=== PATIENT | female | born 1940 | race Caucasian/White ===

== ENCOUNTER 2022-10-01 23:07 | Inpatient (IN) ==
--- NOTE | 2022-10-01 23:36 | Emergency Department Note ---
History of Present Illness General Chief complaint: Shortness of Breath/Dyspnea Stated complaint: SOB X2 hrs, Lethargic, Fever Time Seen by Provider: 10/01/22 23:15 History of Present Illness 81-year-old female presents emergency department via EMS reportedly had low pulse ox and a temperature at home. Patient of note is a DO NOT RESUSCITATE and she has a history of metastatic brain cancer and COPD. Patient was lethargic this evening had a fever and had shortness of breath. Patient's family states that they tried to have her ambulate to bed but she was extremely weak and they called EMS. Patient was placed on a BiPAP oximetry of 77%. Patient states that she is improved. There are no other complaints at this time Home Medications Medication Instructions Recorded Confirmed Type amitriptyline 10 mg tablet 10 mg PO HS 09/15/22 10/02/22 History duloxetine 20 mg capsule,delayed 20 mg PO DAILY 09/15/22 10/02/22 History release fluticasone propionate 50 2 spray intranasal DAILY 09/15/22 10/02/22 History mcg/actuation nasal spray,suspension gabapentin 400 mg capsule 400 mg PO BID 09/15/22 10/02/22 History hydromorphone 2 mg tablet 1 mg PO Q4H PRN Pain 09/15/22 10/02/22 History insulin aspart U-100 100 unit/mL 1 sliding scale dose subcut ACHS 09/15/22 10/02/22 History subcutaneous solution (Novolog U-100 Insulin aspart) insulin glargine 100 unit/mL (3 10 unit subcut QPM 09/15/22 10/02/22 History mL) subcutaneous pen (Lantus Solostar U-100 Insulin) lisinopril 2.5 mg tablet 2.5 mg PO DAILY 09/15/22 10/02/22 History multivitamin 1 tab PO DAILY 09/15/22 10/02/22 History olanzapine 5 mg tablet 5 mg PO QPM 09/15/22 10/02/22 History omeprazole 40 mg capsule,delayed 40 mg PO DAILY 09/15/22 10/02/22 History release polyethylene glycol 3350 17 17 g PO BID 09/15/22 10/02/22 History gram/dose oral powder (Miralax) roflumilast 500 mcg tablet 500 mcg PO DAILY 09/15/22 10/02/22 History sennosides 8.6 mg-docusate sodium 2 tab-cap PO BID 09/15/22 10/02/22 History 50 mg tablet (Senna with Docusate Sodium) simvastatin 20 mg tablet 20 mg PO DAILY 09/15/22 10/02/22 History dexamethasone 4 mg tablet 4 mg PO DAILY 5 days #5 tabs 09/28/22 10/02/22 Rx acetaminophen 500 mg tablet 500 mg PO Q6H PRN Pain 10/02/22 10/02/22 History (Tylenol Extra Strength) albuterol sulfate 90 mcg/actuation 2 puff inhalation 6XD 10/02/22 10/02/22 History aerosol inhaler budesonide-formoterol HFA 160 2 inh inhalation BID 10/02/22 10/02/22 History mcg-4.5 mcg/actuation aerosol inhaler (Symbicort) desloratadine 5 mg tablet 5 mg PO DAILY PRN Congestion 10/02/22 10/02/22 History empagliflozin 25 mg tablet 25 mg PO QAM 10/02/22 10/02/22 History (Jardiance) glimepiride 2 mg tablet 2 mg PO BID 10/02/22 10/02/22 History ipratropium 0.5 mg-albuterol 3 mg 3 ml inhalation Q6H PRN Wheezing 10/02/22 10/02/22 History (2.5 mg base)/3 mL nebulization soln lorazepam 0.5 mg tablet 0.5 mg PO Q6H PRN Anxiety 10/02/22 10/02/22 History venlafaxine 75 mg capsule,extended 75 mg PO DAILY 10/02/22 10/02/22 History release 24 hr Allergies Allergy/AdvReac Type Severity Reaction Status Date / Time No Known Allergies Allergy Verified 10/02/22 00:09 Past Med/Surg History Medical History Anxiety COPD (chronic obstructive pulmonary disease) Diabetes mellitus Hypercholesteremia Hypertension Metastatic cancer On home O2 @ HS Surgical History H/O removal of cyst Right breast H/O: hysterectomy S/P cholecystectomy S/P lobectomy of lung right lung Family History Father Cancer Brain Brother Cancer Sister Cancer Pancreatic Son Cancer Liver Social History Smoking Status: Unknown if ever smoked Age Started Using Tobacco: 15; packs per day: 1.5; Second Hand Exposure: No; Do You Dip or Chew Tobacco: No; Hx Alcohol Use: No Hx Substance Use: No Preferred Language: Martiniquais Communication Ability: Effective Visual Impairment: No Limitations Hearing Ability: Hard of Hearing Tank Officer Required: No Beliefs That Will Affect Care: None marital status: Current Living Situation: Alone current occupational status: retired 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 Feels Safe at Home: Yes Diet: regular caffeine: Yes (coffee daily) Assistive Devices: Cane, Denture - Upper, Denture - Lower, Glasses, Nebulizer, Oxygen - at Night, Raised Toilet Seat and Walker Review of Systems A total of 10 systems reviewed and were otherwise negative Constitutional: + fever Respiratory: + chest congestion and + dyspnea Cardiovascular: no chest pain Physical Exam Vital Signs Vital Signs - 24 hr 10/01/22 23:16 10/01/22 23:15 10/01/22 23:18 Temperature 39.6 C H Temperature Source Oral Pulse Rate 118 H 120 H 115 H Respiratory Rate 26 H 28 H Respiratory Effort / Characteristics Non-Labored Spontaneous Labored Respiratory Depth Normal Shallow Respiratory Pattern Tachypnea Blood Pressure 125/61 Blood Pressure Mean 82 Pulse Oximetry 98 98 Oxygen Delivery Method BiPAP Fraction of Inspired Oxygen 80 Sepsis Recent Fever Within 48 Hours Yes Sepsis New/Unexplained Change in Mental Status No Sepsis Action Taken by Nursing Physician Notified GENERAL: Patient is awake alert in no acute distress patient is resting comfortably and showing no signs of anxiety; patient is on BiPAP EYES: The conjunctivae are clear. The pupils are round and reactive. EARS, NOSE, MOUTH AND THROAT: The nose is without any evidence of any deformity. Mucous membranes are moist. Tongue is midline. NECK: The neck is nontender and supple. RESPIRATORY: Normal respiratory effort is noted there is no evidence of wheezing rhonchi or rales CARDIOVASCULAR: Regular rate and rhythm noted there no murmurs rubs or gallops normal S1 normal S2. GASTROINTESTINAL: The abdomen is soft. Abdomen is nontender. BACK: No midline tenderness or or step-off noted range of motion in flexion extension as well as rotation no signs of muscle spasm noted MUSCULOSKELETAL/EXTREMITIES: There is no evidence of gross deformity full range of motion is noted in the hips and shoulders. Bilateral lower extremity edema SKIN: There is no obvious evidence of any rash. There are no petechiae, pallor or cyanosis noted. NEUROLOGIC: Patient is awake alert and oriented x3 strength is symmetric Course Reevaluation(s) Reevaluation #1: Patient was started on BiPAP, patient was started on IV fluids 1 L bolus, patient had a MAP greater than 65, patient is found to have bilateral lower lobe pneumonia. Patient was given Rocephin and Zithromax. Patient was not hypotensive. Patient does have a DNR on her chart. The case was discussed with the hospitalist for admission Time: 00:29 Consultations Consultation #1: Case was discussed with the [facility] hospitalist for admission Time: 00:29 Critical Care Time Critical Care Time: Yes Total Critical Care Time: 35 I have personally spent greater than 35 minutes of critical care time in the direct management of this patient. This includes bedside care, interpretation of diagnostic studies, and testing, discussion with consultants, patient, and family members, and other required patient management activities. These minutes are in excess of all separately billable procedures. Medical Decision Making Medical Records Attestation: I reviewed the patient's medical records. Home Medications Current Medication List: was personally reviewed by me Laboratory Data Attestation: I reviewed the patient's lab results. 10/01/22 23:28 10/01/22 23:28 Lab Results 10/01/22 10/01/22 10/01/22 Range/Units 23:28 23:28 23:28 WBC 8.74 (4.8-10.8) K/ul RBC 4.00 L (4.20-5.40) M/uL Hgb 11.3 L (12.0-16.0) g/dl Hct 34.7 L (37.0-47.0) % MCV 86.8 (80.0-100.0) fL MCH 28.3 (25.0-34.0) pg MCHC 32.6 (32.0-36.0) g/dL RDW Std Deviation 50.7 H (36.4-46.3) fL RDW Coeff of Jose Angel 16.0 H (11.5-14.5) % Plt Count 239 (130-400) K/uL MPV 10.4 (9.4-12.4) fL Immature Gran % (Auto) 2.1 % Neut % (Auto) 83.5 % Lymph % (Auto) 4.8 % [place] % (Auto) 9.2 % Eos % (Auto) 0.1 % Baso % (Auto) 0.3 % Neut # (Auto) 7.30 H (1.40-6.50) K/uL Lymph # (Auto) 0.42 L (1.2-3.4) K/uL [place] # (Auto) 0.80 H (0.11-0.59) K/uL Eos # (Auto) 0.01 (0-0.50) K/uL Baso # (Auto) 0.03 (0-0.2) K/uL Immature Gran # (Auto) 0.18 (0.01-0.20) K/uL PT 10.9 (9.0-12.0) Seconds INR 1.0 (0.9-1.1) APTT 28.5 (21.0-31.0) Seconds PTT Ratio 1.0 Sodium 133 L (136-145) mmol/L Potassium 3.5 (3.5-5.1) mmol/L Chloride 98 (98-107) mmol/L Carbon Dioxide 27 (21-32) mmol/L Anion Gap 8 (3-11) BUN 15 (6-23) mg/dl Creatinine 0.85 (0.6-1.2) mg/dl Est Cr Clr Drug Dosing 44.5 ml/min Est GFR ( Amer) 74.5 ml/min Est GFR (Non-Af Amer) 64.3 ml/min BUN/Creatinine Ratio 17.6 (10-20) Glucose 216 H (70-99(Fasting)) mg/dl Lactate (0.4-2.0) mmol/L Calcium 8.5 L (8.6-10.3) mg/dl Magnesium 1.7 (1.7-2.4) mg/dl Total Bilirubin 0.7 (0.2-1.0) mg/dl Direct Bilirubin 0.2 (0-0.2) mg/dl AST 15 (13-39) U/L ALT 18 (7-52) U/L Alkaline Phosphatase 65 (34-104) U/L Troponin I High Sens 17.0 H (0-14) pg/ml Total Protein 6.2 (6.0-8.3) gm/dl Albumin 3.1 L (3.4-5.0) gm/dl Procalcitonin (0-0.5) ng/ml SARS-CoV-2, RNA, NAAT (NEGATIVE) 10/01/22 10/01/22 10/01/22 Range/Units 23:28 23:28 23:45 WBC (4.8-10.8) K/ul RBC (4.20-5.40) M/uL Hgb (12.0-16.0) g/dl Hct (37.0-47.0) % MCV (80.0-100.0) fL MCH (25.0-34.0) pg MCHC (32.0-36.0) g/dL RDW Std Deviation (36.4-46.3) fL RDW Coeff of Jose Angel (11.5-14.5) % Plt Count (130-400) K/uL MPV (9.4-12.4) fL Immature Gran % (Auto) % Neut % (Auto) % Lymph % (Auto) % Bosque % (Auto) % Eos % (Auto) % Baso % (Auto) % Neut # (Auto) (1.40-6.50) K/uL Lymph # (Auto) (1.2-3.4) K/uL Bos[place] # (Auto) (0.11-0.59) K/uL Eos # (Auto) (0-0.50) K/uL Baso # (Auto) (0-0.2) K/uL Immature Gran # (Auto) (0.01-0.20) K/uL PT (9.0-12.0) Seconds INR (0.9-1.1) APTT (21.0-31.0) Seconds PTT Ratio Sodium (136-145) mmol/L Potassium (3.5-5.1) mmol/L Chloride (98-107) mmol/L Carbon Dioxide (21-32) mmol/L Anion Gap (3-11) BUN (6-23) mg/dl Creatinine (0.6-1.2) mg/dl Est Cr Clr Drug Dosing ml/min Est GFR ( Amer) ml/min Est GFR (Non-Af Amer) ml/min BUN/Creatinine Ratio (10-20) Glucose (70-99(Fasting)) mg/dl Lactate 1.3 (0.4-2.0) mmol/L Calcium (8.6-10.3) mg/dl Magnesium (1.7-2.4) mg/dl Total Bilirubin (0.2-1.0) mg/dl Direct Bilirubin (0-0.2) mg/dl AST (13-39) U/L ALT (7-52) U/L Alkaline Phosphatase (34-104) U/L Troponin I High Sens (0-14) pg/ml Total Protein (6.0-8.3) gm/dl Albumin (3.4-5.0) gm/dl Procalcitonin 1.03 H (0-0.5) ng/ml SARS-CoV-2, RNA, NAAT NEGATIVE (NEGATIVE) ECG Data Attestation: I personally reviewed and interpreted this ECG as follows: Additional Comments: EKG interpreted by me sinus tachycardia rate of 112, normal intervals normal axis, no ST segment elevation or depression Telemetry was ordered by me, interpreted as sinus tachycardia rate of 112 MDM Narrative Medical decision making differential diagnosis includes sepsis, pneumonia respiratory tract infection, dehydration, urinary tract infection, electrolyte COPD exacerbation Plan is to check sepsis labs External medical records were reviewed by me DNR paperwork was reviewed by me Family provided me bedside report Impression & Plan Sepsis, Pneumonia, Hypoxia Discharge Plan Visit Data Chief Complaint: Shortness of Breath/Dyspnea Stated Complaint: SOB X2 hrs, Lethargic, Fever ED Provider: Gerry Osman Discharge Problem: Sepsis, Pneumonia, Hypoxia Patient Disposition: Admitted As Inpatient Forms Stand Alone Forms: My [facility] Prescriptions Prescriptions: No Action amitriptyline 10 mg tablet 10 mg PO HS duloxetine 20 mg capsule,delayed release(DR/EC) 20 mg PO DAILY fluticasone propionate 50 mcg/actuation spray,suspension 2 spray intranasal DAILY Rx Instructions: administer into each nostril gabapentin 400 mg capsule 400 mg PO BID hydromorphone 2 mg tablet 1 mg PO Q4H PRN (Reason: Pain) insulin glargine [Lantus Solostar U-100 Insulin] 100 unit/mL (3 mL) insulin pen 10 unit subcut QPM Patient Comments: Taper doses until weaned off dexamethasone lisinopril 2.5 mg tablet 2.5 mg PO DAILY Patient Comments: has not been taking insulin aspart U-100 [Novolog U-100 Insulin aspart] 100 unit/mL solution 1 sliding scale dose subcut ACHS Patient Comments: 2:50>150 before each meal and before bed Rx Instructions: 2:50>150 BSG SLIDING SCALE. olanzapine 5 mg tablet 5 mg PO QPM polyethylene glycol 3350 [Miralax] 17 gram/dose powder 17 g PO BID roflumilast 500 mcg tablet 500 mcg PO DAILY sennosides-docusate sodium [Senna with Docusate Sodium] 8.6-50 mg tablet 2 tab-cap PO BID simvastatin 20 mg tablet 20 mg PO DAILY multivitamin Tablet 1 tab PO DAILY omeprazole 40 mg capsule,delayed release(DR/EC) 40 mg PO DAILY dexamethasone 4 mg tablet 4 mg PO DAILY 5 Days Qty: 5 0RF Rx Instructions: STARTED 09/28/22 FOR 5 DAYS. Take one pill by mouth one hour prior to each radiation treatment. venlafaxine 75 mg capsule,extended release 24hr 75 mg PO DAILY ipratropium-albuterol 0.5 mg-3 mg(2.5 mg base)/3 mL solution for nebulization 3 ml INHALATION Q6H PRN (Reason: Wheezing) acetaminophen [Tylenol Extra Strength] 500 mg Tablet 500 mg PO Q6H PRN (Reason: Pain) glimepiride 2 mg tablet 2 mg PO BID lorazepam 0.5 mg tablet 0.5 mg PO Q6H PRN (Reason: Anxiety) desloratadine 5 mg tablet 5 mg PO DAILY PRN (Reason: Congestion) albuterol sulfate 90 mcg/actuation HFA aerosol inhaler 2 puff INHALATION 6XD budesonide-formoterol [Symbicort] 160-4.5 mcg/actuation HFA aerosol inhaler 2 inh INHALATION BID Jardiance 25 mg tablet 25 mg PO QAM Referrals Referrals: Chuck Martinez M.D. [Primary Care Provider] -
[2022-10-01] MEDS ORDERED: AZITHROMYCIN 500 MG in DEXTROSE 5% 250 ML IV ONE (23:38)
[2022-10-01] MEDS ORDERED: cefTRIAXone SODIUM 2,000 MG/70 ML BAG IV STA (23:38)
[2022-10-01 23:55] LABS: Basophils # (auto) 0.03 K/uL (0-0.2); Basophils % (auto) 0.3 %; Eosinophils # (auto) 0.01 K/uL (0-0.50); Eosinophils % (auto) 0.1 %; Hematocrit (blood only) 34.7 % (37.0-47.0); Hemoglobin 11.3 g/dl (12.0-16.0); Immature Granulocytes # (auto) 0.18 K/uL (0.01-0.20); Immature Granulocytes % (auto) 2.1 %; Lymphocytes # (auto) 0.42 K/uL (1.2-3.4); Lymphocytes % (auto) 4.8 %; Mean Corpuscular Hemoglobin 28.3 pg (25.0-34.0); Mean Corpuscular Hgb Conc 32.6 g/dL (32.0-36.0); Mean Corpuscular Volume 86.8 fL (80.0-100.0); Mean Platelet Volume 10.4 fL (9.4-12.4); Monocytes % (auto) 9.2 %; Neutrophils % (auto) 83.5 %; Platelet Count 239 K/uL (130-400); RDW Standard Deviation 50.7 fL (36.4-46.3); White Blood Count 8.74 K/ul (4.8-10.8)
[2022-10-02 00:06] LABS: Albumin Level 3.1 gm/dl (3.4-5.0); BUN Creatinine Ratio 17.6 (10-20); Bilirubin Direct 0.2 mg/dl (0-0.2); Bilirubin,Total 0.7 mg/dl (0.2-1.0); Calcium 8.5 mg/dl (8.6-10.3); Creatinine Clr Calc Pharmacy 44.5 ml/min; Est GFR (African American) 74.5 ml/min; Est GFR (Non-African American) 64.3 ml/min; Magnesium 1.7 mg/dl (1.7-2.4); Potassium 3.5 mmol/L (3.5-5.1); Total Protein 6.2 gm/dl (6.0-8.3)
[2022-10-02] MEDS ORDERED: ACETAMINOPHEN 1,000 MG/100 ML VIAL IV STA (00:06)
[2022-10-02 00:19] LABS: Partial Thromboplastin Time 28.5 Seconds (21.0-31.0); Prothrombin Time 10.9 Seconds (9.0-12.0)
[2022-10-02] MEDS ORDERED: SODIUM CHLORIDE 0.9% 1000ML 1,000 ML IV ONE (00:26)
--- NOTE | 2022-10-02 00:49 | History & Physical Report ---
Date of Service October 02, 2022 Assessment & Plan (1) Acute respiratory failure with hypoxia: (2) Pneumonia: (3) Metastatic cancer: (4) Brain mass: (5) Anxiety: (6) Pulmonary nodule: (7) Sepsis: (8) S/P lobectomy of lung: (9) Hypertension: (10) Hypercholesteremia: (11) COPD (chronic obstructive pulmonary disease): Plan Acute respiratory failure with hypoxia/COPD exacerbation/pneumonia- Initially placed on BiPAP, then with improvement in oxygenation was able to be changed to 4 L nasal cannula oxygen and will attempt to further decrease Hold Ventolin HFA and Symbicort Pulmicort Respules 0.5 mg inhaled twice daily Duonebs every 4 hours while awake and every 2 hours when necessary. Zosyn 4.5 g IV every 8 hours MRSA swab Continue Daliresp Guaifenesin extended release 1200 mg p.o. twice daily Nasal cannula oxygen, titrate to keep pulse ox around 92% Diabetes mellitus- Hold empagliflozin, glimepiride, glargine 10 units Placed on Accu-Cheks with NovoLog SSI Check hemoglobin A1c Metastatic cancer to brain- Presumptive lung primary Seeing radiation oncology, with simulation appointment on 09/16/[address] Celsa Thoams Anxiety/depression/neuropathy- Continue duloxetine, venlafaxine, home and gabapentin Chronic pain- Acetaminophen 650 mg by mouth every 6 hours as needed for mild pain or fever Dilaudid 1 mg p.o. every 4 hours as needed moderate pain Hyperlipidemia- Continue simvastatin Dexamethasone use- 4 mg daily, will increase to twice daily for stress dosing Follow effect on blood sugars GERD- Change omeprazole to pantoprazole per formulary interchange History of Present Illness Chief Complaint: The patient is brought to the emergency department due to shortness of breath, dyspnea on exertion, lethargy and fever over the past 2 hours prior to arrival. Primary Care Provider: Chuck Martinez The patient is a 81-year-old female with a past medical history including metastatic cancer to brain, anxiety, pulmonary nodule, diabetes mellitus, anxiety with depression, peripheral neuropathy, chronic pain syndrome, COPD, GERD, hyperlipidemia, lumbosacral radiculopathy, lung nodule, renal cyst, obesity, insomnia, and senile osteoporosis. The patient is brought to the emergency department due to the acute development over the past 2 hours of shortness of breath, dyspnea on exertion, lethargy and fever. Patient was noted upon arrival to the ED to have a pulse ox of 77%, and was placed on BiPAP until work-up was completed. Allergies Allergy/AdvReac Type Severity Reaction Status Date / Time No Known Allergies Allergy Verified 10/02/22 00:09 Home Medications Medication Instructions Recorded Confirmed Type amitriptyline 10 mg tablet 10 mg PO HS 09/15/22 10/02/22 History duloxetine 20 mg capsule,delayed 20 mg PO DAILY 09/15/22 10/02/22 History release fluticasone propionate 50 2 spray intranasal DAILY 09/15/22 10/02/22 History mcg/actuation nasal spray,suspension gabapentin 400 mg capsule 400 mg PO BID 09/15/22 10/02/22 History hydromorphone 2 mg tablet 1 mg PO Q4H PRN Pain 09/15/22 10/02/22 History insulin aspart U-100 100 unit/mL 1 sliding scale dose subcut ACHS 09/15/22 10/02/22 History subcutaneous solution (Novolog U-100 Insulin aspart) insulin glargine 100 unit/mL (3 10 unit subcut QPM 09/15/22 10/02/22 History mL) subcutaneous pen (Lantus Solostar U-100 Insulin) lisinopril 2.5 mg tablet 2.5 mg PO DAILY 09/15/22 10/02/22 History multivitamin 1 tab PO DAILY 09/15/22 10/02/22 History olanzapine 5 mg tablet 5 mg PO QPM 09/15/22 10/02/22 History omeprazole 40 mg capsule,delayed 40 mg PO DAILY 09/15/22 10/02/22 History release polyethylene glycol 3350 17 17 g PO BID 09/15/22 10/02/22 History gram/dose oral powder (Miralax) roflumilast 500 mcg tablet 500 mcg PO DAILY 09/15/22 10/02/22 History sennosides 8.6 mg-docusate sodium 2 tab-cap PO BID 09/15/22 10/02/22 History 50 mg tablet (Senna with Docusate Sodium) simvastatin 20 mg tablet 20 mg PO DAILY 09/15/22 10/02/22 History dexamethasone 4 mg tablet 4 mg PO DAILY 5 days #5 tabs 09/28/22 10/02/22 Rx acetaminophen 500 mg tablet 500 mg PO Q6H PRN Pain 10/02/22 10/02/22 History (Tylenol Extra Strength) albuterol sulfate 90 mcg/actuation 2 puff inhalation 6XD 10/02/22 10/02/22 History aerosol inhaler budesonide-formoterol HFA 160 2 inh inhalation BID 10/02/22 10/02/22 History mcg-4.5 mcg/actuation aerosol inhaler (Symbicort) desloratadine 5 mg tablet 5 mg PO DAILY PRN Congestion 10/02/22 10/02/22 History empagliflozin 25 mg tablet 25 mg PO QAM 10/02/22 10/02/22 History (Jardiance) glimepiride 2 mg tablet 2 mg PO BID 10/02/22 10/02/22 History ipratropium 0.5 mg-albuterol 3 mg 3 ml inhalation Q6H PRN Wheezing 10/02/22 10/02/22 History (2.5 mg base)/3 mL nebulization soln lorazepam 0.5 mg tablet 0.5 mg PO Q6H PRN Anxiety 10/02/22 10/02/22 History venlafaxine 75 mg capsule,extended 75 mg PO DAILY 10/02/22 10/02/22 History release 24 hr Past Med/Surg History Medical History (Updated 10/02/22 @ 05:25 by Ben Frankel MD) Anxiety COPD (chronic obstructive pulmonary disease) Diabetes mellitus Hypercholesteremia Hypertension Metastatic cancer On home O2 @ HS Surgical History (Updated 10/02/22 @ 05:25 by Ben Frankel MD) H/O removal of cyst Right breast H/O: hysterectomy S/P cholecystectomy S/P lobectomy of lung right lung Family History Father Cancer Brain Brother Cancer Sister Cancer Pancreatic Son Cancer Liver Social History Smoking Status: Unknown if ever smoked Age Started Using Tobacco: 15; packs per day: 1.5; Second Hand Exposure: No; Do You Dip or Chew Tobacco: No; Hx Alcohol Use: No Hx Substance Use: No Preferred Language: Portuguese Communication Ability: Effective Visual Impairment: No Limitations Hearing Ability: Hard of Hearing Regional Agronomist Required: No Beliefs That Will Affect Care: None marital status: Current Living Situation: Alone current occupational status: retired current occupation: [employer] Other Information That Helps Us Care for You: No Feels Safe at Home: Yes Safety Concerns: Feels Safe At This Time Diet: regular caffeine: Yes (coffee daily) Assistive Devices: Cane, Denture - Upper, Denture - Lower, Glasses and Walker Review of Systems Review of Systems: The patient denies chest pain, palpitations, lower extremity swelling, sore throat, fevers, nausea, vomiting, diarrhea , constipation, abdominal pain, pelvic pain, blood in urine or stool, dysuria, urinary frequency or urgency, lightheadedness, dizziness, headache, loss of consciousness, rash, abnormal bruising or bleeding, imbalance, focal weakness, numbness or tingling in arms or legs, generalized arthralgias or myalgias, back or neck pain, or night sweats. The review of systems is otherwise negative other than for that already noted above, and at least 10 systems have been reviewed. Physical Exam Physical Exam: The patient is awake, alert and oriented 3, well developed and well nourished, normocephalic and atraumatic, lying in bed and in mild distress wearing BiPAP HEENT--PERRL, EOMI, mucous membranes and oropharynx dry. Neck--supple. No JVD. No bruits. Thyroid normal, trachea midline, no adenopathy. Heart--normal S1 and S2. No murmurs, rubs or gallops. Lungs--few coarse breath sounds bilaterally. Mild respiratory distress, no accessory muscle use. Abdomen--normal bowel sounds and soft. Nontender. Nondistended, no hernias or masses, no organomegaly. Extremities--no cyanosis or clubbing. No edema. Dermatologic--normal skin turgor, normal color, no abnormal lymph nodes, no rash. Neurologic--cranial nerves II through XII grossly intact. Rheumatologic--normal range of motion. Psychiatric--asking to have BiPAP removed Results & Data Results & Data Vital Signs (Past 12 Hours) Vital Signs Temp Pulse Resp BP Pulse Ox O2 Del Method FiO2 10/01/22 23:18 115 H 10/01/22 23:15 120 H 28 H 98 80 10/01/22 23:16 39.6 C H 118 H 26 H 125/61 98 BiPAP Laboratory Results Laboratory Results WBC 8.74 K/ul (4.8-10.8) 10/01/22: RBC 4.00 M/uL (4.20-5.40) L 10/01/22: Hgb 11.3 g/dl (12.0-16.0) L 10/01/22 Hct 34.7 % (37.0-47.0) L 10/01/22: MCV 86.8 fL (80.0-100.0) 10/01/22 MCH 28.3 pg (25.0-34.0) 10/01/22 MCHC 32.6 g/dL (32.0-36.0) 10/01/22 RDW Std Deviation 50.7 fL (36.4-46.3) H 10/01/22 RDW Coeff of Jose Angel 16.0 % (11.5-14.5) H 10/01/22 Plt Count 239 K/uL (130-400) 10/01/22 MPV 10.4 fL (9.4-12.4) 10/01/22 Immature Gran % (Auto) 2.1 % 10/01/22: Neut % (Auto) 83.5 % 10/01/22: Lymph % (Auto) 4.8 % 10/01/22: Ashley % (Auto) 9.2 % 10/01/22: Eos % (Auto) 0.1 % 10/01/22 Baso % (Auto) 0.3 % 10/01/22: Neut # (Auto) 7.30 K/uL (1.40-6.50) H 10/01/22: Lymph # (Auto) 0.42 K/uL (1.2-3.4) L 10/01/22 Ashley # (Auto) 0.80 K/uL (0.11-0.59) H 10/01/22: Eos # (Auto) 0.01 K/uL (0-0.50) 10/01/22 23: Baso # (Auto) 0.03 K/uL (0-0.2) 10/01/22: Immature Gran # (Auto) 0.18 K/uL (0.01-0.20) 10/01/22: PT 10.9 Seconds (9.0-12.0) 10/01/22: INR 1.0 (0.9-1.1) 10/01/22: APTT 28.5 Seconds (21.0-31.0) 10/01/22 PTT Ratio 1.0 10/01/22: Sodium 133 mmol/L (136-145) L 10/01/22: Potassium 3.5 mmol/L (3.5-5.1) 10/01/22: Chloride 98 mmol/L (98-107) 10/01/22: Carbon Dioxide 27 mmol/L (21-32) 10/01/22: Anion Gap 8 (3-11) 10/01/22: BUN 15 mg/dl (6-23) 10/01/22: Creatinine 0.85 mg/dl (0.6-1.2) 10/01/22: Est Cr Clr Drug Dosing 44.5 ml/min 10/01/22: Est GFR ( Amer) 74.5 ml/min 10/01/22: Est GFR (Non-Af Amer) 64.3 ml/min 10/01/22: BUN/Creatinine Ratio 17.6 (10-20) 10/01/22: Glucose 216 mg/dl (70-99(Fasting)) H 10/01/22: Lactate 1.3 mmol/L (0.4-2.0) 10/01/22: Calcium 8.5 mg/dl (8.6-10.3) L 10/01/22: Magnesium 1.7 mg/dl (1.7-2.4) 10/01/22: Total Bilirubin 0.7 mg/dl (0.2-1.0) 10/01/22: Direct Bilirubin 0.2 mg/dl (0-0.2) 05/11/23 23:28 AST 15 U/L (13-39) 10/01/22 23:28 ALT 18 U/L (7-52) 10/01/22 23: Alkaline Phosphatase 65 U/L (34-104) 10/01/22 23:28 Troponin I High Sens 17.0 pg/ml (0-14) H 10/01/22 23:28 Total Protein 6.2 gm/dl (6.0-8.3) 10/01/22: Albumin 3.1 gm/dl (3.4-5.0) L 10/01/22 23: Procalcitonin 1.03 ng/ml (0-0.5) H 10/01/22 23:28 Urine Color Dark Yellow 10/02/22 03:06 Urine Appearance Cloudy (Clear) A 10/02/22 03:06 Urine pH 5.5 (4.5-7.5) 10/02/22 03:06 Ur Specific [place] 1.026 (1.000-1.030) 10/02/22 03:06 Urine Protein 2+ (Negative) H 10/02/22 03:06 Urine Glucose (UA) 2+ (Negative) H 10/02/22 03:06 Urine Ketones Trace (Negative) H 10/02/22 03:06 Urine Blood Negative (Negative) 10/02/22 03:06 Urine Nitrite Negative (Negative) 10/02/22 03:06 Urine Bilirubin 1+ (Negative) H 10/02/22 03:06 Urine Urobilinogen Negative (Negative) 10/02/22 03:06 Ur Leukocyte Esterase Negative (Negative) 10/02/22 03:06 Urine WBC (Auto) 5-10 /hpf (0-5) H 10/02/22 03:06 Urine RBC (Auto) 0-4 /hpf (0-4) 10/02/22 03:06 U Hyaline Cast (Auto) 5-10 /lpf (0-5) H 10/02/22 03:06 U Epithel Cells (Auto) >30 /lpf (0-5) H 10/02/22 03:06 Urine Bacteria (Auto) Negative (Negative) 10/02/22 03:06 Ur Renal Epithelial Cell Not Reportable 10/02/22 03:06 Granular Casts 1-5 /lpf (0) H 10/02/22 03:06 Urine Mucus Present (None Prsent) A 10/02/22 03:06 SARS-CoV-2, RNA, NAAT NEGATIVE (NEGATIVE) 10/01/22 23:45 Code Status & VTE Plan Code Status DNR/DNI VTE Prophylaxis Plan VTE Prophylaxis will be ordered: Yes PG Care Time/CCT Total # of Minutes Spent Total Time Spent with Patient: Total time spent is greater than 50% in coordination of care (as documented) at patient's floor/unit and/or counseling patient: Coding Level of Care Code 93476 INT INP/OBS CARE 3/75MIN Diagnoses Acute respiratory failure with hypoxia J96.01 Pneumonia J18.9 Metastatic cancer C79.9 Brain mass G93.89 Anxiety F41.9 Pulmonary nodule R91.1 Sepsis A41.9 S/P lobectomy of lung Z90.2 Hypertension I10 Hypercholesteremia E78.00 COPD (chronic obstructive pulmonary disease) J44.9
[2022-10-02] MEDS ORDERED: ONDANSETRON INJ 2 MG/ML 2 ML VIAL IV STA (01:49)
[2022-10-02] MEDS ORDERED: SIMETHICONE 80 MG CHEW PO ONE (01:49)
[2022-10-02] MEDS ORDERED: LORazepam 0.5 MG TAB PO PRN (03:14)
[2022-10-02] MEDS ORDERED: GLUCOSE 10 TAB/TUBE PO PRN (03:14)
[2022-10-02] MEDS ORDERED: GLUCAGON FOR INJ 1 MG VIAL SQ PRN (03:14)
[2022-10-02] MEDS ORDERED: DEXTROSE 50% 50 ML SYRINGE IV PRN (03:14)
[2022-10-02] MEDS ORDERED: ALBUT/IPRATROP 3MG/0.5MG NEB 3 ML VIAL INH PRN (03:14)
[2022-10-02] MEDS ORDERED: ALBUTEROL HFA 8 GM INHALER INH SCH (03:14)
[2022-10-02] MEDS ORDERED: CARBOHYDRATES FOR HYPOGLYCEMIA PO PRN (03:14)
[2022-10-02] MEDS ORDERED: GLUCOSE 40% GEL 15 GM TUBE PO PRN (03:14)
[2022-10-02] MEDS ORDERED: HYDROmorphone HCL 2 MG TAB PO PRN (03:14)
[2022-10-02 03:22] LABS: Appearance Urine Cloudy (Clear); Bacteria Urine Automated Negative (Negative); Blood Urine Negative (Negative); Color Urine Dark Yellow; Epithelial Cell Urine Auto >30 /lpf (0-5); Glucose Urine UA 2+ (Negative); Ketones Urine Trace (Negative); Leukocyte Esterase Urine Negative (Negative); Nitrite Urine Negative (Negative); Protein Urine 2+ (Negative); Specific Gravity Urine 1.026 (1.000-1.030); Urobilinogen Urine Negative (Negative); pH Urine 5.5 (4.5-7.5)
[2022-10-02 03:35] LABS: Bilirubin Urine 1+ (Negative)
[2022-10-02 03:49] LABS: Mucus Urine Present (None Prsent); RBC Urine Automated 0-4 /hpf (0-4)
[2022-10-02] MEDS: PIPERACILLIN/TAZOBACTAM 4.5 GM in DEXTROSE 5% 100 ML IV SCH ×3 (06:33→20:38)
[2022-10-02] MEDS: ONDANSETRON INJ 2 MG/ML 2 ML VIAL IV PRN (06:46)
[2022-10-02] MEDS: BUDESONIDE 0.5 MG/2 ML VIAL (PULMICORT) NEB SCH ×2 (07:05→19:39)
[2022-10-02] MEDS: ALBUT/IPRATROP 3MG/0.5MG NEB 3 ML VIAL INH SCH ×3 (07:05→19:39)
--- NOTE | 2022-10-02 07:41 | XRay Report ---
XR chest 1V portable CLINICAL HISTORY: Sepsis. COMPARISON STUDY: Chest radiograph October 14, 2015. Chest CT September 05, 2022. FINDINGS: There is no pneumothorax. No definite pleural effusion. Right hilar and right paratracheal lymphadenopathy is better depicted on prior CT of September 05, 2022. There are bibasilar opacities, pred ominantly linear in configuration. Cardiac size is normal. There is no evidence for pulmonary edema. IMPRESSION: 1. Right hilar and right paratracheal lymphadenopathy better depicted on prior chest CT. 2. Bibasilar opacities. Atelectasis is favored although developing pneumonia could appear similar. ACT 112: Negative or not required by law. Electronically signed by: Savage Dick M.D. 10/02/2022 7:38 AM
[2022-10-02 08:03] LABS: Estimated Average Glucose 203 mg/dl; Hemoglobin A1C 8.7 % (4.5-5.6)
[2022-10-02] MEDS: INSULIN ASPART PER UNIT CHARGE SC SCH ×4 (08:40→20:38)
[2022-10-02] MEDS: PANTOprazole 40 MG TAB PO SCH (08:44)
[2022-10-02] MEDS: MULTIVITAMIN TAB PO SCH (08:44)
[2022-10-02] MEDS: guaiFENesin 600 MG TABCR PO SCH ×2 (08:44→20:25)
[2022-10-02] MEDS: SIMVASTATIN 20 MG TAB PO SCH (08:45)
[2022-10-02] MEDS: GABAPENTIN 400 MG CAP PO SCH ×2 (08:45→20:26)
[2022-10-02] MEDS: ENOXAPARIN INJ 40 MG/0.4 ML SYR SQ SCH (08:45)
[2022-10-02] MEDS: POLYETHYLENE (MIRALAX) 17 GM PACK PO SCH ×2 (08:45→20:25)
[2022-10-02] MEDS: ROFLUMILAST 500 MCG TAB PO SCH (08:45)
[2022-10-02] MEDS: DULoxetine HCL 20 MG CAP PO SCH (08:45)
[2022-10-02] MEDS: LORATADINE 10 MG TAB PO PRN (08:45)
[2022-10-02] MEDS: VENLAFAXINE HCL XR 75 MG CAPXR PO SCH (08:45)
[2022-10-02] MEDS: DOCUSATE SODIUM/SENNA 50/8.6MG TAB PO SCH ×2 (08:45→20:24)
[2022-10-02] MEDS ORDERED: FLUTICASONE/VILANTEROL 200/25MCG 14 PUFFS/INHALER INH SCH (09:00)
[2022-10-02] MEDS: ACETAMINOPHEN 325 MG TAB PO PRN ×2 (09:34→20:37)
--- NOTE | 2022-10-02 09:46 | Hospitalist Progress Note ---
Date of Service October 02, 2022 Assessment & Plan (1) Pneumonia: Plan: Pt is a 81 yo female with PMH of anxiety, COPD, DM, HLD, HTN, and recently dx metastatic cancer to her brain presenting with SOB and cough w/mucous. Acute hypoxic respiratory failure - COPD exacerbation vs. PNA vs. burden of malignancy - hypoxic to 70s per EMS, placed on BiPAP initially, then changed NC - no leukocytosis, MRSA neg - blood cx pending, sputum cx pending - CXR showed right hilar lymphadenopathy and bibasilar opacities representing atelectasis vs. PNA - CT chest pending for further eval of lung parenchyma - hold home ventolin and symbicort; continue daliresp - continue pulmicort respules 0.5 mg BID, duonebs q4hr - continue mucinex 1200 mg BID, flutter valve, and incentive spirometry - continue zosyn q8hr Diabetes mellitus w/ neuropathy - A1c 8.7% - hold home empagliflozin, glimepiride, and glargine 10 units - continue SSI - continue home gabapentin 400 mg BID, venlafaxine 75 mg daily, and duloxetine 20 mg daily Metastatic cancer to brain - recently diagnosed, presumptive lung primary - plans for radiation oncology w/ Dr. Thomas to start Wednesday Anxiety/depression - continue medications as above Chronic pain - continue acetaminophen 650 mg q6hrs PRN for mild pain or fever; dilaudid 1 mg PO q4hrs PRN for moderate pain Hyperlipidemia Continue simvastatin GERD - continue pantoprazole 40 mg daily Diet: heart healthy, carb consistent DVT ppx: lovenox 40 mg q24hr Code: DNR/DNI Dispo: PCU/tele (2) S/P lobectomy of lung: (3) Hypertension: (4) Metastatic cancer: (5) Brain mass: (6) Anxiety: Admission and Anticipated Discharge Date Admission Date: October 02, 2022 Supervising Physician Co-Signing Physician Notes I personally examined the patient and verified all catherine points of history and exam, discussed case, and agree with decision making with Dr Fernandez. Feeling better than before. Still more short of breath than baseline. Wonders about radiation oncology treatment. Was supposed to start Wednesday. Son present at the bedside, updated the best my ability. She has had a bronchoscopy and biopsyhas a tissue diagnosissounds to have been small cell lung cancer. Would like medical oncology and pulmonary with Diane Rahman given that her radiation oncology is here as wellexpresses the need for help in getting this set up. Vitals noted, in general she is awake and alert pleasant no distress. HEENT normocephalic atraumatic mucous membranes moist. Breathing with mild accessory muscle use mildly labored but apparently much better than before per her. Minimal conversational dyspnea, which seems to be better than earlier. Community-acquired pneumonia creating acute on chronic hypoxic respiratory failure in the setting of COPD and lung cancerantibiotics, supportive care, timeappears to be improving. Metastatic cancer (sounds to be small cell lung)scheduled for radiation therapy to start on Wednesday, hopefully she will be doing well enough by then that we will be out of proceed, I have updated radiation oncology of her status. Will ask navigator to assist in setting up hematology/oncology and pulmonary. Subjective Pt seen at bedside this AM. She did not have her oxygen on when I entered the room. She would talk a few words to a sentence and then pause to breath shallow and rapidly. Pt states she is unsure when her symptoms started. She is coughing up dark, thick mucous. Review of Systems Review of Systems: As per HPI Physical Exam Physical Exam: Constitutional: ill appearing, mild distress w/ episodes of tachypnea HEENT: normocephalic, no conjunctival injection CV: tachycardic, regular rhythm, no murmur, no LE edema Respiratory: Rhonchi heard throughout with diminished breath sounds on the right. No wheezes or crackles. Mild to moderate increase in work of breathing. MSK: no gross deformities noted Skin: warm, dry, no rashes Neuro: alert, oriented, no FND noted Psych: anxious, mood and affect congruent Results & Data Results & Data Vital Signs (Past 12 Hours) Vital Signs Temp Pulse Pulse Pulse Resp BP BP 10/02/22 07:00 37.1 C 97 H 18 94/54 L 10/02/22 06:00 93 H 10/02/22 07:05 98 H 28 H 10/02/22 03:54 36.7 C 96 H 24 100/65 10/02/22 03:54 67 20 10/02/22 02:30 10/02/22 03:27 100 H 10/02/22 03:00 10/02/22 03:00 10/02/22 02:10 99 H 23 10/02/22 02:00 95 H 21 10/02/22 01:50 101 H 18 10/02/22 01:40 103 H 21 10/02/22 01:30 107 H 27 H 10/02/22 01:30 125/73 10/02/22 01:45 10/02/22 02:15 10/02/22 02:01 37.0 C 10/01/22 23:31 10/01/22 23:16 10/01/22 23:16 10/01/22 22:53 30 H 10/02/22 01:35 100 H 22 10/02/22 01:20 104 H 20 10/02/22 01:10 103 H 22 10/02/22 01:00 104 H 22 10/02/22 00:50 112 H 22 10/02/22 00:40 105 H 22 10/02/22 00:31 107 H 26 H 10/02/22 00:31 148/91 H 10/02/22 00:30 107 H 19 10/02/22 00:20 113 H 24 10/02/22 00:10 113 H 20 10/02/22 00:00 109 H 24 10/02/22 00:00 95/60 L 10/01/22 23:50 118 H 20 10/01/22 23:49 130/68 10/01/22 23:49 115 H 27 H 10/01/22 23:40 115 H 23 10/01/22 23:30 118 H 28 H 10/01/22 23:20 117 H 27 H 10/01/22 23:18 116 H 25 H 10/01/22 23:18 115 H 10/01/22 23:15 120 H 28 H 10/01/22 23:16 39.6 C H 118 H 26 H 125/61 Pulse Ox O2 Del Method O2 Flow Rate FiO2 10/02/22 07:00 97 Nasal Cannula 4 10/02/22 06:00 10/02/22 07:05 95 Nasal Cannula 5 10/02/22 03:54 94 Nasal Cannula 4 10/02/22 03:54 96 Nasal Cannula 3 10/02/22 02:30 Room Air 10/02/22 03:27 10/02/22 03:00 94 Nasal Cannula 4 10/02/22 03:00 Nasal Cannula 4 10/02/22 02:10 94 10/02/22 02:00 94 10/02/22 01:50 93 Nasal Cannula 4 10/02/22 01:40 97 10/02/22 01:30 99 10/02/22 01:30 10/02/22 01:45 97 Nasal Cannula, BiPAP 10/02/22 02:15 Nasal Cannula 10/02/22 02:01 94 Nasal Cannula 4 10/01/22 23:31 BiPAP 10/01/22 23:16 BiPAP 10/01/22 23:16 98 Room Air 10/01/22 22:53 98 BiPAP 10/02/22 01:35 100 80 10/02/22 01:20 99 10/02/22 01:10 99 10/02/22 01:00 99 10/02/22 00:50 99 10/02/22 00:40 99 BiPAP 10/02/22 00:31 99 10/02/22 00:31 10/02/22 00:30 99 10/02/22 00:20 99 10/02/22 00:10 99 10/02/22 00:00 10/02/22 00:00 10/01/22 23:50 98 10/01/22 23:49 10/01/22 23:49 98 10/01/22 23:40 98 10/01/22 23:30 98 10/01/22 23:20 98 10/01/22 23:18 98 BiPAP 10/01/22 23:18 10/01/22 23:15 98 80 10/01/22 23:16 98 BiPAP Resident Activity Tracking Resident Involvement: Resident Care Provided Care Provided: Adult Hospital Medicine
--- NOTE | 2022-10-02 14:17 | CT Scan Report ---
CT chest diagnostic wo con CT DOSE: 397.71 mGy.cm HISTORY: increased shortness of breath, PNA vs. malignancy TECHNIQUE: Multiaxial CT images of the chest were performed without contrast. A dose lowering techni que was utilized adhering to the principles of ALARA. COMPARISON: Chest 10/01/2022. Chest CT 09/05/2022. FINDINGS: Limited views of the upper abdomen demonstrate a normal spleen and adrenal glands. There is a septated partially visualized 10 cm right renal cyst. There is a stable 1 cm hypodense lesion with in the left hepatic lobe. This favors a cyst. No pleural or pericardial effusions. The heart remains normal in size. There is a normal caliber esophagus. Moderate calcified plaque within the normal naomi larissa thoracic aorta. There is severe coronary artery calcifications again noted. There are severe calc ified plaque within the proximal left subclavian artery resulting in moderate to severe stenosis. Manav ateral supraclavicular/superior mediastinal lymphadenopathy again noted measuring up to 3.7 cm there is mediastinal and bilateral hilar lymphadenopathy also persist, right greater than left. There is a right hilar/perihilar mass again noted which measures approximately 4.4 cm. Dominant right paratrache al lymph node measures approximately 5.8 x 3.9 cm. Overall, the lymphadenopathy and right hilar/perih ilar mass are similar in size compared to the prior study. There is a trace right pleural effusion. R ight pleural calcified plaques again noted. No suspicious lytic or blastic osseous lesions. Emphysema again noted. No pneumothorax. Complete occlusion of the anterior segmental bronchus of the right upp er lobe due to the mass. There is mild right bronchial wall thickening with partial opacification of the right middle and lower lobe bronchi with mucoid material. This has progressed in the interval. In terval development of bibasilar consolidative and groundglass airspace opacities consistent with a pn eumonia. This could be due to aspiration. Suture material within the right lung base is noted consist ent with postoperative change. A few additional groundglass and tree-in-bud nodular opacities within the right upper lobe also likely representing an infectious process. IMPRESSION: 1. Redemonstration of the right hilar/perihilar 4.4 cm mass with associated supraclavicular, mediasti nal, and hilar lymphadenopathy . This consistent with metastatic disease. 2. Interval development of consolidative and groundglass bibasilar airspace opacities consistent with a pneumonia. This is likely due to aspiration. 3. Additional findings as described above. ACT 112: Negative or not required by law. Electronically signed by: Griffin Herring M.D. 10/02/2022 2:16 PM
[2022-10-02] MEDS ORDERED: CHLORASEPTIC 1.4% SOLN 180 ML BTL MT PRN (17:07)
[2022-10-02] MEDS: BENZOCAINE/MENTHOL 18 LOZ/1 BOX MT PRN (18:45)
[2022-10-02] MEDS: OLANZapine 5 MG TABLET PO SCH (20:24)
[2022-10-02] MEDS: AMITRIPTYLINE HCL 10 MG TAB PO SCH (20:25)
[2022-10-02] MEDS: LANTUS PER UNIT CHARGE SQ SCH (20:37)
[2022-10-02] MEDS: MELATONIN 3 MG TAB PO PRN (20:37)
[2022-10-02] MEDS: dexAMETHasone 4 MG TAB PO SCH (21:46)
[2022-10-03] MEDS: ALBUT/IPRATROP 3MG/0.5MG NEB 3 ML VIAL INH SCH ×4 (01:10→19:04)
[2022-10-03] MEDS: PIPERACILLIN/TAZOBACTAM 4.5 GM in DEXTROSE 5% 100 ML IV SCH (06:01)
--- NOTE | 2022-10-03 06:22 | Electrocardiogram Report ---
Test Reason : Blood Pressure : / mmHG Vent. Rate : 116 BPM Atrial Rate : 116 BPM P-R Int : 162 ms QRS Dur : 066 ms QT Int : 328 ms P-R-T Axes : 061 045 072 degrees QTc Int : 455 ms Sinus tachycardia Otherwise normal ECG No previous ECGs available Confirmed by Kapil Meyers ([id number]) on 10/03/2022 6:22:36 AM Referred By: REFERRED SELF Confirmed By:Kapil Meyers
[2022-10-03] MEDS: BUDESONIDE 0.5 MG/2 ML VIAL (PULMICORT) NEB SCH ×2 (07:02→19:04)
--- NOTE | 2022-10-03 07:22 | Hospitalist Progress Note ---
Date of Service October 03, 2022 Assessment & Plan (1) Pneumonia: Plan: Pt is a 81 yo female with PMH of anxiety, COPD, DM, HLD, HTN, and recently dx metastatic cancer to her brain presenting with SOB and cough w/mucous. Acute hypoxic respiratory failure - COPD exacerbation vs. PNA vs. burden of malignancy - hypoxic to 70s per EMS, placed on BiPAP initially, then changed NC - no leukocytosis, MRSA neg - blood cx pending, sputum cx pending - CXR showed right hilar lymphadenopathy and bibasilar opacities representing atelectasis vs. PNA - CT chest pending for further eval of lung parenchyma - hold home ventolin and symbicort; continue daliresp - continue pulmicort respules 0.5 mg BID, duonebs q4hr - continue mucinex 1200 mg BID, flutter valve, and incentive spirometry - Will switch Zosyn q8h to Ceftriaxone 1g q24h given improvement. - still with oxygen requirement. Will try to wean as tolerated, ideally off O2 before discharge. Diabetes mellitus w/ neuropathy - A1c 8.7% - hold home empagliflozin, glimepiride, and glargine 10 units - continue SSI - continue home gabapentin 400 mg BID, venlafaxine 75 mg daily, and duloxetine 20 mg daily Metastatic cancer to brain - recently diagnosed, presumptive lung primary - plans for radiation oncology w/ Dr. Thomas to start Wednesday Anxiety/depression - continue medications as above Chronic pain - continue acetaminophen 650 mg q6hrs PRN for mild pain or fever; dilaudid 1 mg PO q4hrs PRN for moderate pain Hyperlipidemia Continue simvastatin GERD - continue pantoprazole 40 mg daily Diet: heart healthy, carb consistent DVT ppx: lovenox 40 mg q24hr Code: DNR/DNI Dispo: PCU/tele (2) S/P lobectomy of lung: (3) Hypertension: (4) Metastatic cancer: (5) Brain mass: (6) Anxiety: Admission and Anticipated Discharge Date Admission Date: October 02, 2022 Supervising Physician Co-Signing Physician Notes I personally examined the patient and verified all catherine points of history and exam, discussed case, and agree with decision making with Dr Esqueda Feeling better, breathing better, eating. Overall improved. Still on approximately 4 L whenever I see her. Son present at the bedside. Vitals noted, in general she is awake and alert pleasant no distress. HEENT normocephalic atraumatic mucous membranes moist. Breathing unlabored no accessory muscle use good effort, skin without rashes pallor or icterus, no focal neurodeficits. Community-acquired pneumonia creating acute on chronic hypoxic respiratory failure in the setting of COPD and lung cancerantibiotics (with improvement will de-escalate to Rocephin), supportive care, timeappears to be improving nicely at this point. 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 Asked navigator to assist in setting up hematology/oncology and pulmonary. Subjective Patient seen at the bedside saying she feels better today than she did yesterday. Her shortness of breath has gotten better and she states she is able to eat well. Denies fevers, chills, chest pain, diarrhea. Review of Systems Review of Systems: As per HPI Physical Exam Constitutional: WD/WN, vitals as above Eyes: PERRL, conjunctivae normal, anicteric sclerae Respiratory: Insipraotry crackles auscultated at the LLL field, otherwise clear to auscultation. Cardiovascular: RRR, no murmur, no edema Gastrointestinal (Abdomen): normal bowel sounds, soft, nontender, no hepatosplenomegaly Psychiatric: A+Ox3, euthymic affect Results & Data Results & Data Vital Signs (Past 12 Hours) Vital Signs Temp Pulse Pulse Pulse Pulse Resp BP 10/03/22 07:02 92 H 20 10/03/22 05:20 80 10/03/22 03:00 105 H 10/03/22 03:34 82 10/03/22 02:54 36.3 C L 85 18 148/70 H 10/03/22 01:11 81 10/03/22 01:10 80 20 10/02/22 23:02 36.3 C L 88 20 91/57 L 10/02/22 22:44 92 H 10/02/22 20:11 10/02/22 19:41 108 H 26 H 10/02/22 19:24 37.9 C H 103 H 24 136/73 Pulse Ox Pulse Ox O2 Del Method O2 Del Method O2 Flow Rate O2 Flow Rate 10/03/22 07:02 98 Nasal Cannula 5 10/03/22 05:20 99 Nasal Cannula 5 10/03/22 03:00 10/03/22 03:34 99 Nasal Cannula 5 10/03/22 02:54 99 Nasal Cannula 5 10/03/22 01:11 99 Nasal Cannula 5 10/03/22 01:10 99 Nasal Cannula 5 10/02/22 23:02 99 Nasal Cannula 5 10/02/22 22:44 98 Nasal Cannula 5 10/02/22 20:11 Nasal Cannula 4 10/02/22 19:41 95 Nasal Cannula 4 10/02/22 19:24 97 Nasal Cannula 4 Resident Activity Tracking Resident Involvement: Resident Care Provided Care Provided: Adult Hospital Medicine
[2022-10-03 07:23] LABS: Albumin Globulin Ratio 0.9 (0.9-2); Albumin Level 2.9 gm/dl (3.4-5.0); BUN Creatinine Ratio 23.6 (10-20); Bilirubin,Total 0.4 mg/dl (0.2-1.0); Calcium 8.6 mg/dl (8.6-10.3); Creatinine Clr Calc Pharmacy 68.4 ml/min; Globulin 3.2 gm/dl (2.5-4.0); Magnesium 2.2 mg/dl (1.7-2.4); Potassium 3.7 mmol/L (3.5-5.1); Total Protein 6.1 gm/dl (6.0-8.3)
[2022-10-03 07:24] LABS: Hematocrit (blood only) 33.9 % (37.0-47.0); Hemoglobin 10.8 g/dl (12.0-16.0); Mean Corpuscular Hemoglobin 28.1 pg (25.0-34.0); Mean Corpuscular Hgb Conc 31.9 g/dL (32.0-36.0); Mean Corpuscular Volume 88.1 fL (80.0-100.0); Mean Platelet Volume 10.2 fL (9.4-12.4); Platelet Count 234 K/uL (130-400); RDW Coefficient of Variation 15.8 % (11.5-14.5); RDW Standard Deviation 50.4 fL (36.4-46.3); Red Blood Count 3.85 M/uL (4.20-5.40); White Blood Count 6.53 K/ul (4.8-10.8)
[2022-10-03 07:45] LABS: Basophils # (auto) 0.03 K/uL (0-0.2); Basophils % (auto) 0.5 %; Eosinophils # (auto) 0.01 K/uL (0-0.50); Eosinophils % (auto) 0.2 %; Immature Granulocytes # (auto) 0.15 K/uL (0.01-0.20); Immature Granulocytes % (auto) 2.3 %; Lymphocytes # (auto) 0.37 K/uL (1.2-3.4); Lymphocytes % (auto) 5.7 %; Monocytes # (auto) 0.31 K/uL (0.11-0.59); Monocytes % (auto) 4.7 %; Neutrophils # (auto) 5.66 K/uL (1.40-6.50); Neutrophils % (auto) 86.6 %
[2022-10-03] MEDS: INSULIN ASPART PER UNIT CHARGE SC SCH ×4 (07:53→20:57)
[2022-10-03] MEDS: ENOXAPARIN INJ 40 MG/0.4 ML SYR SQ SCH (08:30)
[2022-10-03] MEDS: POLYETHYLENE (MIRALAX) 17 GM PACK PO SCH ×2 (08:32→20:59)
[2022-10-03] MEDS: guaiFENesin 600 MG TABCR PO SCH ×2 (08:33→21:01)
[2022-10-03] MEDS: GABAPENTIN 400 MG CAP PO SCH ×2 (08:33→21:01)
[2022-10-03] MEDS: SIMVASTATIN 20 MG TAB PO SCH (08:34)
[2022-10-03] MEDS: DULoxetine HCL 20 MG CAP PO SCH (08:34)
[2022-10-03] MEDS: PANTOprazole 40 MG TAB PO SCH (08:34)
[2022-10-03] MEDS: VENLAFAXINE HCL XR 75 MG CAPXR PO SCH (08:34)
[2022-10-03] MEDS: MULTIVITAMIN TAB PO SCH (08:34)
[2022-10-03] MEDS: dexAMETHasone 4 MG TAB PO SCH ×2 (08:34→21:01)
[2022-10-03] MEDS: DOCUSATE SODIUM/SENNA 50/8.6MG TAB PO SCH ×2 (08:34→20:59)
[2022-10-03] MEDS: ROFLUMILAST 500 MCG TAB PO SCH (08:34)
[2022-10-03] MEDS: cefTRIAXone SODIUM 1,000 MG in DEXTROSE 5% AD-VAN 50 ML IV SCH (13:49)
--- NOTE | 2022-10-03 14:12 | Billing Data ---
Date of Service October 03, 2022 Coding Level of Care Code 83662 SUB INP/OBS CARE MIN
[2022-10-03] MEDS: ONDANSETRON INJ 2 MG/ML 2 ML VIAL IV PRN (17:11)
[2022-10-03] MEDS: LANTUS PER UNIT CHARGE SQ SCH (20:57)
[2022-10-03] MEDS: ACETAMINOPHEN 325 MG TAB PO PRN (20:58)
[2022-10-03] MEDS: MELATONIN 3 MG TAB PO PRN (20:59)
[2022-10-03] MEDS: OLANZapine 5 MG TABLET PO SCH (21:00)
[2022-10-03] MEDS: AMITRIPTYLINE HCL 10 MG TAB PO SCH (21:21)
[2022-10-04] MEDS: ALBUT/IPRATROP 3MG/0.5MG NEB 3 ML VIAL INH SCH ×4 (01:19→19:04)
--- NOTE | 2022-10-04 06:51 | Hospitalist Progress Note ---
Date of Service October 04, 2022 Assessment & Plan (1) Pneumonia: Plan: Pt is a 81 yo female with PMH of anxiety, COPD, DM, HLD, HTN, and recently dx metastatic cancer to her brain presenting with SOB and cough w/mucous. Acute hypoxic respiratory failure - COPD exacerbation vs. PNA vs. burden of malignancy - hypoxic to 70s per EMS, placed on BiPAP initially, then changed NC - no leukocytosis, MRSA neg - blood cx pending, sputum cx pending - CXR showed right hilar lymphadenopathy and bibasilar opacities representing atelectasis vs. PNA - CT chest pending for further eval of lung parenchyma - hold home ventolin and symbicort; continue daliresp - continue pulmicort respules 0.5 mg BID, duonebs q4hr - continue mucinex 1200 mg BID, flutter valve, and incentive spirometry - Will switch Zosyn q8h to Ceftriaxone 1g q24h given improvement. - still with oxygen requirement. Will try to wean as tolerated, ideally off O2 before discharge. Diabetes mellitus w/ neuropathy - A1c 8.7% - hold home empagliflozin, glimepiride, and glargine 10 units - continue SSI - continue home gabapentin 400 mg BID, venlafaxine 75 mg daily, and duloxetine 20 mg daily Metastatic cancer to brain - recently diagnosed, presumptive lung primary - plans for radiation oncology w/ Dr. Thomas to start Wednesday - May need to reach out to Dr. Thomas tomorrow since patient still here and planned for treatment. Anxiety/depression - continue medications as above Chronic pain - continue acetaminophen 650 mg q6hrs PRN for mild pain or fever; dilaudid 1 mg PO q4hrs PRN for moderate pain Hyperlipidemia Continue simvastatin GERD - continue pantoprazole 40 mg daily Diet: heart healthy, carb consistent DVT ppx: lovenox 40 mg q24hr Code: DNR/DNI Dispo: PCU/tele (2) S/P lobectomy of lung: (3) Hypertension: (4) Metastatic cancer: (5) Brain mass: (6) Anxiety: Admission and Anticipated Discharge Date Admission Date: October 02, 2022 Supervising Physician Co-Signing Physician Notes I personally examined the patient and verified all catherine points of history and exam, discussed case, and agree with decision making with Dr Salavitabar feeling better breathing better still on 2L but less than before and also able to walk to bathroom etc without much dyspnea Vitals noted, in general she is awake and alert pleasant no distress. HEENT normocephalic atraumatic mucous membranes moist. Breathing unlabored no accessory muscle use good effort, skin without rashes pallor or icterus, no focal neurodeficits. Community-acquired pneumonia creating acute on chronic hypoxic respiratory failure in the setting of COPD and lung cancerantibiotics (Rocephin), supportive care, timeappears to be improving nicely at this point. 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 Asked navigator to assist in setting up hematology/oncology and pulmonary. Subjective Patient seen at the bedside this morning saying she feels okay, better still than when she first came in. Denies fevers, chills, chest pain, shortness of breath, diarrhea, constipation, nausea or vomiting. Review of Systems Review of Systems: As per HPI Physical Exam Constitutional: WD/WN, vitals as above Eyes: PERRL, conjunctivae normal, anicteric sclerae Respiratory: Mild crackles b/l bases. Cardiovascular: RRR, no murmur, no edema Gastrointestinal (Abdomen): normal bowel sounds, soft, nontender, no hepatosplenomegaly Psychiatric: A+Ox3, euthymic affect Results & Data Results & Data Vital Signs (Past 12 Hours) Vital Signs Temp Pulse Pulse Pulse Resp BP Pulse Ox 10/04/22 02:42 36.6 C 73 18 98/58 L 94 10/03/22 23:20 89 10/03/22 22:53 36.7 C 86 18 102/47 L 96 10/03/22 20:40 10/03/22 19:04 36.8 C 86 18 108/63 98 10/03/22 19:06 89 17 98 O2 Del Method O2 Flow Rate 10/04/22 02:42 Nasal Cannula 10/03/22 23:20 10/03/22 22:53 Nasal Cannula 2 10/03/22 20:40 Nasal Cannula 2 10/03/22 19:04 Nasal Cannula 2 10/03/22 19:06 Nasal Cannula 2 Resident Activity Tracking Resident Involvement: Resident Care Provided Care Provided: Adult Hospital Medicine
[2022-10-04] MEDS: BUDESONIDE 0.5 MG/2 ML VIAL (PULMICORT) NEB SCH ×2 (06:57→19:04)
[2022-10-04 08:03] LABS: Hematocrit (blood only) 36.3 % (37.0-47.0); Hemoglobin 11.7 g/dl (12.0-16.0); Mean Corpuscular Hemoglobin 27.9 pg (25.0-34.0); Mean Corpuscular Hgb Conc 32.2 g/dL (32.0-36.0); Mean Corpuscular Volume 86.4 fL (80.0-100.0); Mean Platelet Volume 10.2 fL (9.4-12.4); Platelet Count 391 K/uL (130-400); RDW Coefficient of Variation 15.9 % (11.5-14.5)
[2022-10-04 08:23] LABS: Basophils # (auto) 0.07 K/uL (0-0.2); Basophils % (auto) 0.7 %; Immature Granulocytes # (auto) 0.56 K/uL (0.01-0.20); Immature Granulocytes % (auto) 5.7 %; Lymphocytes # (auto) 0.92 K/uL (1.2-3.4); Lymphocytes % (auto) 9.3 %; Monocytes # (auto) 0.47 K/uL (0.11-0.59); Monocytes % (auto) 4.7 %; Neutrophils # (auto) 7.88 K/uL (1.40-6.50); Neutrophils % (auto) 79.6 %
[2022-10-04 08:28] LABS: Albumin Globulin Ratio 0.9 (0.9-2); Albumin Level 3.4 gm/dl (3.4-5.0); BUN Creatinine Ratio 28.4 (10-20); Bilirubin,Total 0.3 mg/dl (0.2-1.0); Calcium 9.5 mg/dl (8.6-10.3); Creatinine Clr Calc Pharmacy 56.1 ml/min; Est GFR (African American) 95.5 ml/min; Est GFR (Non-African American) 82.4 ml/min; Globulin 3.7 gm/dl (2.5-4.0); Magnesium 2.3 mg/dl (1.7-2.4); Potassium 3.6 mmol/L (3.5-5.1); Total Protein 7.1 gm/dl (6.0-8.3)
[2022-10-04] MEDS: INSULIN ASPART PER UNIT CHARGE SC SCH ×4 (09:48→20:25)
[2022-10-04] MEDS: LANTUS PER UNIT CHARGE SQ SCH ×2 (09:50→20:26)
[2022-10-04] MEDS: dexAMETHasone 4 MG TAB PO SCH ×2 (09:52→20:15)
[2022-10-04] MEDS: LORATADINE 10 MG TAB PO PRN (09:52)
[2022-10-04] MEDS: ROFLUMILAST 500 MCG TAB PO SCH (09:52)
[2022-10-04] MEDS: POLYETHYLENE (MIRALAX) 17 GM PACK PO SCH ×2 (09:52→20:15)
[2022-10-04] MEDS: GABAPENTIN 400 MG CAP PO SCH ×2 (09:52→20:15)
[2022-10-04] MEDS: SIMVASTATIN 20 MG TAB PO SCH (09:52)
[2022-10-04] MEDS: DOCUSATE SODIUM/SENNA 50/8.6MG TAB PO SCH ×2 (09:52→20:15)
[2022-10-04] MEDS: DULoxetine HCL 20 MG CAP PO SCH (09:53)
[2022-10-04] MEDS: PANTOprazole 40 MG TAB PO SCH (09:53)
[2022-10-04] MEDS: guaiFENesin 600 MG TABCR PO SCH ×2 (09:53→20:15)
[2022-10-04] MEDS: MULTIVITAMIN TAB PO SCH (09:53)
[2022-10-04] MEDS: ENOXAPARIN INJ 40 MG/0.4 ML SYR SQ SCH (10:58)
[2022-10-04] MEDS: VENLAFAXINE HCL XR 75 MG CAPXR PO SCH (10:59)
[2022-10-04] MEDS: cefTRIAXone SODIUM 1,000 MG in DEXTROSE 5% AD-VAN 50 ML IV SCH (14:29)
[2022-10-04] MEDS: BENZOCAINE/MENTHOL 18 LOZ/1 BOX MT PRN (14:30)
--- NOTE | 2022-10-04 16:25 | Billing Data ---
Date of Service October 04, 2022 Coding Level of Care Code 06546 SUB INP/OBS CARE
[2022-10-04] MEDS: OLANZapine 5 MG TABLET PO SCH (20:15)
[2022-10-04] MEDS: AMITRIPTYLINE HCL 10 MG TAB PO SCH (20:15)
[2022-10-04] MEDS: ACETAMINOPHEN 325 MG TAB PO PRN (20:16)
[2022-10-04] MEDS: MELATONIN 3 MG TAB PO PRN (20:16)
[2022-10-05] MEDS: ALBUT/IPRATROP 3MG/0.5MG NEB 3 ML VIAL INH SCH ×4 (00:43→19:24)
[2022-10-05] MEDS ORDERED: LOPERAMIDE HCL 2 MG CAP PO ONE (07:30)
[2022-10-05] MEDS: BUDESONIDE 0.5 MG/2 ML VIAL (PULMICORT) NEB SCH ×2 (07:38→19:24)
--- NOTE | 2022-10-05 07:50 | Hospitalist Progress Note ---
Date of Service October 05, 2022 Assessment & Plan (1) Pneumonia: Plan: Pt is a 81 yo female with PMH of anxiety, COPD, DM, HLD, HTN, and recently dx metastatic cancer to her brain presenting with SOB and cough w/mucous. Acute hypoxic respiratory failure - COPD exacerbation vs. PNA vs. burden of malignancy - no leukocytosis, MRSA neg - blood cx without growth after 48 hours, sputum cx growing pseudomonas and strep pneumo - CXR showed right hilar lymphadenopathy and bibasilar opacities representing atelectasis vs. PNA - CT chest with right hilar/perihilar 4.4 cm mass with associated supraclavicular, mediastinal, and hilar lymphadenopathy . This consistent with metastatic disease. Interval development of consolidative and groundglass bibasilar airspace opacities consistent with a pneumonia. This is likely due to aspiration. - hold home ventolin and symbicort; continue daliresp - continue pulmicort respules 0.5 mg BID, duonebs q4hr - continue mucinex 1200 mg BID, flutter valve, and incentive spirometry - Will switch to levofloxacin to cover for pseudomonas, with plan for 7 day duration - still with oxygen requirement. Will try to wean as tolerated, ideally off O2 before discharge. Diabetes mellitus w/ neuropathy - A1c 8.7% - hold home empagliflozin, glimepiride, and glargine 10 units - continue SSI - continue home gabapentin 400 mg BID, venlafaxine 75 mg daily, and duloxetine 20 mg daily Metastatic cancer to brain - recently diagnosed, presumptive lung primary - plans for radiation oncology w/ Dr. Thomas, hope to resume Wednesday Anxiety/depression - continue medications as above Chronic pain - continue acetaminophen 650 mg q6hrs PRN for mild pain or fever; dilaudid 1 mg PO q4hrs PRN for moderate pain Hyperlipidemia Continue simvastatin GERD - continue pantoprazole 40 mg daily Diet: heart healthy, carb consistent DVT ppx: lovenox 40 mg q24hr Code: DNR/DNI (2) S/P lobectomy of lung: (3) Hypertension: (4) Metastatic cancer: (5) Brain mass: (6) Anxiety: Admission and Anticipated Discharge Date Admission Date: October 02, 2022 Supervising Physician Co-Signing Physician Notes Attending attestation Pt seen and examined in concert with Dr. Almanzar. In agreement with the documented findings as noted in the resident documentation with any exceptions or additions as noted here. Comfortable on 1-2L NC and overall improved fatigue and SOB. On examination, S1/S2 nl RRR no MCG. CTAB. Abd NT/ND BS+ve Acute on chronic hypoxic respiratory failure in the setting of CAP with underlying neoplastic lung disease - sputum Cx w/ pseudomonas and strep pneumoniae would warrant transition to FQ therapy. Metastatic lung disease - delayed radiation therapy, likely to resume on Wednesday pending clinical improvement. Else see resident documentation as noted. Subjective Jessica states that she is feeling better this morning. Son is with her at bedside. Dyspnea improving. Does note that she has had a couple of loose stools. Review of Systems Review of Systems: As per above Physical Exam Physical Exam: Constitutional: well-appearing, no acute distress HEENT: NCAT, no conjunctival injection CV: regular rhythm, no murmur appreciated, extremities well-perfused, no LE edema Resp: CTABL, no wheezes/rales/rhonchi appreciated, no increased work of breathing GI: soft, nondistended, nontender MSK: no gross deformities appreciated Skin: warm, dry, no rash appreciated Neuro: alert, oriented, no focal neurologic deficit appreciated Results & Data Results & Data Vital Signs (Past 12 Hours) Vital Signs Temp Pulse Pulse Pulse Resp BP Pulse Ox 10/05/22 07:38 105 H 20 96 10/05/22 07:34 36.9 C 97 H 19 158/78 H 94 10/05/22 07:30 94 10/05/22 07:30 78 L 10/05/22 02:43 36.5 C 76 16 128/65 98 10/04/22 23:02 36.6 C 84 18 107/60 98 10/04/22 22:58 78 10/04/22 20:15 O2 Del Method O2 Flow Rate 10/05/22 07:38 Nasal Cannula 2 10/05/22 07:34 Nasal Cannula 2.0 10/05/22 07:30 Nasal Cannula 2 10/05/22 07:30 Room Air 10/05/22 02:43 Nasal Cannula 2 10/04/22 23:02 Nasal Cannula 2 10/04/22 22:58 10/04/22 20:15 Nasal Cannula 2 Resident Activity Tracking Resident Involvement: Resident Care Provided Care Provided: Adult [facility] Medicine
[2022-10-05] MEDS: VENLAFAXINE HCL XR 75 MG CAPXR PO SCH (08:40)
[2022-10-05] MEDS: DULoxetine HCL 20 MG CAP PO SCH (08:40)
[2022-10-05] MEDS: PANTOprazole 40 MG TAB PO SCH (08:40)
[2022-10-05] MEDS: dexAMETHasone 4 MG TAB PO SCH ×2 (08:40→20:14)
[2022-10-05] MEDS: MULTIVITAMIN TAB PO SCH (08:40)
[2022-10-05] MEDS: ROFLUMILAST 500 MCG TAB PO SCH (08:40)
[2022-10-05] MEDS: LORATADINE 10 MG TAB PO PRN (08:40)
[2022-10-05] MEDS: guaiFENesin 600 MG TABCR PO SCH ×2 (08:40→20:15)
[2022-10-05] MEDS: SIMVASTATIN 20 MG TAB PO SCH (08:40)
[2022-10-05] MEDS: GABAPENTIN 400 MG CAP PO SCH ×2 (08:40→20:15)
[2022-10-05] MEDS: INSULIN ASPART PER UNIT CHARGE SC SCH ×4 (08:41→20:27)
[2022-10-05] MEDS: ENOXAPARIN INJ 40 MG/0.4 ML SYR SQ SCH (08:42)
[2022-10-05] MEDS: LANTUS PER UNIT CHARGE SQ SCH ×2 (08:42→21:16)
[2022-10-05] MEDS: POLYETHYLENE (MIRALAX) 17 GM PACK PO SCH ×2 (08:42→20:16)
[2022-10-05] MEDS: DOCUSATE SODIUM/SENNA 50/8.6MG TAB PO SCH ×2 (08:42→20:16)
[2022-10-05 08:43] LABS: BUN Creatinine Ratio 36.8 (10-20); Calcium 9.3 mg/dl (8.6-10.3); Creatinine Clr Calc Pharmacy 55.3 ml/min; Est GFR (African American) 95.1 ml/min; Magnesium 2.1 mg/dl (1.7-2.4); Potassium 4.1 mmol/L (3.5-5.1)
[2022-10-05 08:58] LABS: ALC (manual) 1.43 K/uL (1.2-3.4); ANC (manual) 6.24 K/uL (1.4-6.5); Hematocrit (blood only) 35.5 % (37.0-47.0); Hemoglobin 11.6 g/dl (12.0-16.0); Lymphocytes # (manual) 1.43 K/uL (1.2-3.4); Lymphocytes % (manual) 16 %; Mean Corpuscular Hemoglobin 28.2 pg (25.0-34.0); Mean Corpuscular Hgb Conc 32.7 g/dL (32.0-36.0); Mean Corpuscular Volume 86.2 fL (80.0-100.0); Mean Platelet Volume 9.8 fL (9.4-12.4); Metamyelocytes # (manual) 0.36 K/uL (0-0); Metamyelocytes % (manual) 4 %; Monocytes # (manual) 0.62 K/uL (0.11-0.59); Monocytes % (manual) 7 %; Myelocytes # (manual) 0.36 K/uL (0-0); Myelocytes % (manual) 4 %; Neutrophils # (manual) 6.24 K/uL (1.40-6.50); Neutrophils % (manual) 70 %; Platelet Count 411 K/uL (130-400); Polychromasia 1+; RDW Coefficient of Variation 15.9 % (11.5-14.5); RDW Standard Deviation 50.4 fL (36.4-46.3); Red Blood Count 4.12 M/uL (4.20-5.40); White Blood Count 8.91 K/ul (4.8-10.8)
[2022-10-05] MEDS: ACETAMINOPHEN 325 MG TAB PO PRN ×2 (12:38→20:16)
[2022-10-05] MEDS: cefTRIAXone SODIUM 1,000 MG in DEXTROSE 5% AD-VAN 50 ML IV SCH (12:38)
[2022-10-05] MEDS ORDERED: levoFLOXacin 750 MG TAB PO SCH (17:30)
[2022-10-05] MEDS: AMITRIPTYLINE HCL 10 MG TAB PO SCH (20:14)
[2022-10-05] MEDS: OLANZapine 5 MG TABLET PO SCH (20:15)
[2022-10-05] MEDS: MELATONIN 3 MG TAB PO PRN (20:16)
[2022-10-06] MEDS: ALBUT/IPRATROP 3MG/0.5MG NEB 3 ML VIAL INH SCH ×3 (00:46→13:31)
[2022-10-06] MEDS: BUDESONIDE 0.5 MG/2 ML VIAL (PULMICORT) NEB SCH (07:03)
[2022-10-06 07:10] LABS: Hematocrit (blood only) 35.1 % (37.0-47.0); Hemoglobin 11.5 g/dl (12.0-16.0); Mean Corpuscular Hemoglobin 28.5 pg (25.0-34.0); Mean Corpuscular Hgb Conc 32.8 g/dL (32.0-36.0); Mean Corpuscular Volume 86.9 fL (80.0-100.0); Mean Platelet Volume 9.6 fL (9.4-12.4); Nucleated RBC # (auto) 0.02 K/uL (0-0.12); Nucleated RBC % (auto) 0.2 %; Platelet Count 401 K/uL (130-400); RDW Coefficient of Variation 15.6 % (11.5-14.5); RDW Standard Deviation 49.2 fL (36.4-46.3); Red Blood Count 4.04 M/uL (4.20-5.40); White Blood Count 8.99 K/ul (4.8-10.8)
[2022-10-06 07:11] LABS: ALC (manual) 0.81 K/uL (1.2-3.4); ANC (manual) 6.56 K/uL (1.4-6.5); Lymphocytes # (manual) 0.81 K/uL (1.2-3.4); Lymphocytes % (manual) 9 %; Metamyelocytes # (manual) 0.27 K/uL (0-0); Metamyelocytes % (manual) 3 %; Monocytes # (manual) 0.63 K/uL (0.11-0.59); Monocytes % (manual) 7 %; Myelocytes # (manual) 0.72 K/uL (0-0); Myelocytes % (manual) 8 %; Neutrophils # (manual) 6.56 K/uL (1.40-6.50); Neutrophils % (manual) 73 %; RBC Morphology Unremarkable
[2022-10-06 07:12] LABS: BUN Creatinine Ratio 37.3 (10-20); Bilirubin,Total 0.2 mg/dl (0.2-1.0); Creatinine Clr Calc Pharmacy 61.6 ml/min; Est GFR (African American) 99.6 ml/min; Globulin 2.9 gm/dl (2.5-4.0); Magnesium 1.9 mg/dl (1.7-2.4); Potassium 4.2 mmol/L (3.5-5.1); Total Protein 5.9 gm/dl (6.0-8.3)
--- NOTE | 2022-10-06 07:47 | Hospitalist Progress Note ---
Date of Service October 06, 2022 Assessment & Plan (1) Pneumonia: Plan: Pt is a 81 yo female with PMH of anxiety, COPD, DM, HLD, HTN, and recently dx metastatic cancer to her brain presenting with SOB and cough w/mucous. Acute hypoxic respiratory failure - COPD exacerbation vs. PNA vs. burden of malignancy - no leukocytosis, MRSA neg - blood cx without growth after 48 hours, sputum cx growing pseudomonas and strep pneumo - CXR showed right hilar lymphadenopathy and bibasilar opacities representing atelectasis vs. PNA - CT chest with right hilar/perihilar 4.4 cm mass with associated supraclavicular, mediastinal, and hilar lymphadenopathy . This consistent with metastatic disease. Interval development of consolidative and groundglass bibasilar airspace opacities consistent with a pneumonia. This is likely due to aspiration. - hold home ventolin and symbicort; continue daliresp - continue pulmicort respules 0.5 mg BID, duonebs q4hr - continue mucinex 1200 mg BID, flutter valve, and incentive spirometry - Will switch to levofloxacin to cover for pseudomonas, with plan for 7 day duration - still with oxygen requirement. Will try to wean as tolerated, ideally off O2 before discharge. Diabetes mellitus w/ neuropathy - A1c 8.7% - hold home empagliflozin, glimepiride, and glargine 10 units - continue SSI - continue home gabapentin 400 mg BID, venlafaxine 75 mg daily, and duloxetine 20 mg daily Metastatic cancer to brain - recently diagnosed, presumptive lung primary - plans for radiation oncology w/ Dr. Thomas, hope to resume Wednesday Anxiety/depression - continue medications as above Chronic pain - continue acetaminophen 650 mg q6hrs PRN for mild pain or fever; dilaudid 1 mg PO q4hrs PRN for moderate pain Hyperlipidemia Continue simvastatin GERD - continue pantoprazole 40 mg daily Diet: heart healthy, carb consistent DVT ppx: lovenox 40 mg q24hr Code: DNR/DNI (2) S/P lobectomy of lung: (3) Hypertension: (4) Metastatic cancer: (5) Brain mass: (6) Anxiety: (7) Ambulatory dysfunction: Admission and Anticipated Discharge Date Admission Date: October 02, 2022 Review of Systems Review of Systems: As per above Physical Exam Physical Exam: Constitutional: well-appearing, no acute distress HEENT: NCAT, no conjunctival injection CV: regular rhythm, no murmur appreciated, extremities well-perfused, no LE edema Resp: CTABL, no wheezes/rales/rhonchi appreciated, no increased work of breathing GI: soft, nondistended, nontender MSK: no gross deformities appreciated Skin: warm, dry, no rash appreciated Neuro: alert, oriented, no focal neurologic deficit appreciated Results & Data Results & Data Vital Signs (Past 12 Hours) Vital Signs Temp Pulse Pulse Pulse Resp BP Pulse Ox 10/06/22 07:08 36.6 C 88 18 139/71 97 10/06/22 07:05 88 18 97 10/06/22 03:00 36.5 C 91 H 21 118/68 98 10/05/22 22:05 88 10/05/22 23:00 36.5 C 86 18 127/71 98 O2 Del Method O2 Flow Rate 10/06/22 07:08 Nasal Cannula 2.0 10/06/22 07:05 Nasal Cannula 2 10/06/22 03:00 Nasal Cannula 2 10/05/22 22:05 10/05/22 23:00 Nasal Cannula 2
[2022-10-06] MEDS: LANTUS PER UNIT CHARGE SQ SCH (08:19)
[2022-10-06] MEDS: INSULIN ASPART PER UNIT CHARGE SC SCH ×2 (08:20→11:58)
[2022-10-06] MEDS: PANTOprazole 40 MG TAB PO SCH (08:54)
[2022-10-06] MEDS: guaiFENesin 600 MG TABCR PO SCH (08:54)
[2022-10-06] MEDS: dexAMETHasone 4 MG TAB PO SCH (08:54)
[2022-10-06] MEDS: GABAPENTIN 400 MG CAP PO SCH (08:54)
[2022-10-06] MEDS: MULTIVITAMIN TAB PO SCH (08:54)
[2022-10-06] MEDS: VENLAFAXINE HCL XR 75 MG CAPXR PO SCH (08:54)
[2022-10-06] MEDS: DULoxetine HCL 20 MG CAP PO SCH (08:55)
[2022-10-06] MEDS: ROFLUMILAST 500 MCG TAB PO SCH (08:55)
[2022-10-06] MEDS: SIMVASTATIN 20 MG TAB PO SCH (08:55)
[2022-10-06] MEDS: DOCUSATE SODIUM/SENNA 50/8.6MG TAB PO SCH (08:55)
[2022-10-06] MEDS: POLYETHYLENE (MIRALAX) 17 GM PACK PO SCH (08:55)
[2022-10-06] MEDS: ENOXAPARIN INJ 40 MG/0.4 ML SYR SQ SCH (08:55)
[2022-10-06] MEDS ORDERED: COUGH DROP (SUGAR FREE) LOZ 24 LOZ/1 BOX BUCCAL PRN (12:24)
--- NOTE | 2022-10-06 14:33 | Discharge Summary ---
Date of Service October 06, 2022 Admission HPI Per Admitting Provider The patient is a 81-year-old female with a past medical history including metastatic cancer to brain, anxiety, pulmonary nodule, diabetes mellitus, anxiety with depression, peripheral neuropathy, chronic pain syndrome, COPD, GERD, hyperlipidemia, lumbosacral radiculopathy, lung nodule, renal cyst, obesity, insomnia, and senile osteoporosis. The patient is brought to the emergency department due to the acute development over the past 2 hours of shortness of breath, dyspnea on exertion, lethargy and fever. Patient was noted upon arrival to the ED to have a pulse ox of 77%, and was placed on BiPAP until work-up was completed. Principal Diagnosis Pneumonia Discharge Exam Constitutional: well-appearing, no acute distress HEENT: NCAT, no conjunctival injection CV: regular rhythm, no murmur appreciated, extremities well-perfused, no LE edema Resp: CTABL, no wheezes/rales/rhonchi appreciated, no increased work of breathing GI: soft, nondistended, nontender MSK: no gross deformities appreciated Skin: warm, dry, no rash appreciated Neuro: alert, oriented, no focal neurologic deficit appreciated Discharge Data Allergies Allergy/AdvReac Type Severity Reaction Status Date / Time No Known Allergies Allergy Verified 10/02/22 00:09 Consultations 10/02/22 00:29 ED Decision to Admit Stat 10/02/22 16:50 Consult RAQUEL filter tank tender Routine Ordered Studies 10/02/22 11:54 CT chest diagnostic wo con Urgent Laboratory Results WBC 8.99 K/ul (4.8-10.8) 10/06/22 06:21 RBC 4.04 M/uL (4.20-5.40) L 10/06/22 06:21 Hgb 11.5 g/dl (12.0-16.0) L 10/06/22 06:21 Hct 35.1 % (37.0-47.0) L 10/06/22 06:21 MCV 86.9 fL (80.0-100.0) 10/06/22 06:21 MCH 28.5 pg (25.0-34.0) 10/06/22 06:21 MCHC 32.8 g/dL (32.0-36.0) 10/06/22 06:21 RDW Std Deviation 49.2 fL (36.4-46.3) H 10/06/22 06:21 RDW Coeff of Jose Angel 15.6 % (11.5-14.5) H 10/06/22 06:21 Plt Count 401 K/uL (130-400) H 10/06/22 06:21 MPV 9.6 fL (9.4-12.4) 10/06/22 06:21 Immature Gran % (Auto) 5.7 % 10/04/22 07:36 Neut % (Auto) 79.6 % 10/04/22 07:36 Lymph % (Auto) 9.3 % 10/04/22 07:36 [place] % (Auto) 4.7 % 10/04/22 07:36 Eos % (Auto) 0.0 % 10/04/22 07:36 Baso % (Auto) 0.7 % 10/04/22 07:36 Neut # (Auto) 7.88 K/uL (1.40-6.50) H 10/04/22 07:36 Lymph # (Auto) 0.92 K/uL (1.2-3.4) L 10/04/22 07:36 [place] # (Auto) 0.47 K/uL (0.11-0.59) 10/04/22 07:36 Eos # (Auto) 0.00 K/uL (0-0.50) 10/04/22 07:36 Baso # (Auto) 0.07 K/uL (0-0.2) 10/04/22 07:36 Immature Gran # (Auto) 0.56 K/uL (0.01-0.20) H 10/04/22 07:36 Absolute Nucleated RBC 0.02 K/uL (0-0.12) 10/06/22 06:21 Nucleated RBC % (auto) 0.2 % 10/06/22 06:21 Neutrophils % (Manual) 73 % 10/06/22 06:21 Lymphocytes % (Manual) 9 % 10/06/22 06:21 Monocytes % (Manual) 7 % 10/06/22 06:21 Metamyelocytes % (Man) 3 % 10/06/22 06:21 Myelocytes % (Man) 8 % 10/06/22 06:21 Neutrophils # (Manual) 6.56 K/uL (1.40-6.50) H 10/06/22 06:21 Total Absolute Neuts 6.56 K/uL (1.4-6.5) H 10/06/22 06:21 Lymphocytes # (Manual) 0.81 K/uL (1.2-3.4) L 10/06/22 06:21 Total Abs Lymphocytes 0.81 K/uL (1.2-3.4) L 10/06/22 06:21 Monocytes # (Manual) 0.63 K/uL (0.11-0.59) H 10/06/22 06:21 Metamyelocytes # (Man) 0.27 K/uL (0-0) H 10/06/22 06:21 Myelocytes # (Manual) 0.72 K/uL (0-0) H 10/06/22 06:21 RBC Morphology Unremarkable 10/06/22 06:21 Polychromasia 1+ 10/05/22 08:06 PT 10.9 Seconds (9.0-12.0) 10/01/22 23:28 INR 1.0 (0.9-1.1) 10/01/22 23:28 APTT 28.5 Seconds (21.0-31.0) 10/01/22 23:28 PTT Ratio 1.0 10/01/22 23:28 Sodium 139 mmol/L (136-145) 10/06/22 06:21 Potassium 4.2 mmol/L (3.5-5.1) 10/06/22 06:21 Chloride 101 mmol/L (98-107) 10/06/22 06:21 Carbon Dioxide 32 mmol/L (21-32) 10/06/22 06:21 Anion Gap 6 (3-11) 10/06/22 06:21 BUN 22 mg/dl (6-23) 10/06/22 06:21 Creatinine 0.59 mg/dl (0.6-1.2) L 10/06/22 06:21 Est Cr Clr Drug Dosing 61.6 ml/min 10/06/22 06:21 Est GFR ( Amer) 99.6 ml/min 10/06/22 06:21 Est GFR (Non-Af Amer) 86.0 ml/min 10/06/22 06:21 BUN/Creatinine Ratio 37.3 (10-20) H 10/06/22 06:21 Glucose 152 mg/dl (70-99(Fasting)) H 10/06/22 06:21 POC Glucose 86 mg/dl (70-99) 10/06/22 11:04 Estimat Average Glucose 203 mg/dl 10/01/22 23:28 Hemoglobin A1c 8.7 % (4.5-5.6) H 10/01/22 23:28 Lactate 1.3 mmol/L (0.4-2.0) 10/01/22 23:28 Calcium 9.0 mg/dl (8.6-10.3) 10/06/22 06:21 Magnesium 1.9 mg/dl (1.7-2.4) 10/06/22 06:21 Total Bilirubin 0.2 mg/dl (0.2-1.0) 10/06/22 06:21 Direct Bilirubin 0.2 mg/dl (0-0.2) 10/01/22 23:28 AST 12 U/L (13-39) L 10/06/22 06:21 ALT 19 U/L (7-52) 10/06/22 06:21 Alkaline Phosphatase 60 U/L (34-104) 10/06/22 06:21 Troponin I High Sens 16.7 pg/ml (0-14) H 10/02/22 06:33 Total Protein 5.9 gm/dl (6.0-8.3) L 10/06/22 06:21 Albumin 3.0 gm/dl (3.4-5.0) L 10/06/22 06:21 Globulin 2.9 gm/dl (2.5-4.0) 10/06/22 06:21 Albumin/Globulin Ratio 1.0 (0.9-2) 10/06/22 06:21 Procalcitonin 1.03 ng/ml (0-0.5) H 10/01/22 23:28 Urine Color Dark Yellow 10/02/22 03:06 Urine Appearance Cloudy (Clear) A 10/02/22 03:06 Urine pH 5.5 (4.5-7.5) 10/02/22 03:06 Ur Specific [place] 1.026 (1.000-1.030) 10/02/22 03:06 Urine Protein 2+ (Negative) H 10/02/22 03:06 Urine Glucose (UA) 2+ (Negative) H 10/02/22 03:06 Urine Ketones Trace (Negative) H 10/02/22 03:06 Urine Blood Negative (Negative) 10/02/22 03:06 Urine Nitrite Negative (Negative) 10/02/22 03:06 Urine Bilirubin 1+ (Negative) H 10/02/22 03:06 Urine Urobilinogen Negative (Negative) 10/02/22 03:06 Ur Leukocyte Esterase Negative (Negative) 10/02/22 03:06 Urine WBC (Auto) 5-10 /hpf (0-5) H 10/02/22 03:06 Urine RBC (Auto) 0-4 /hpf (0-4) 10/02/22 03:06 U Hyaline Cast (Auto) 5-10 /lpf (0-5) H 10/02/22 03:06 U Epithel Cells (Auto) >30 /lpf (0-5) H 10/02/22 03:06 Urine Bacteria (Auto) Negative (Negative) 10/02/22 03:06 Ur Renal Epithelial Cell Not Reportable 10/02/22 03:06 Granular Casts 1-5 /lpf (0) H 10/02/22 03:06 Urine Mucus Present (None Prsent) A 10/02/22 03:06 Nasal Screen MRSA (PCR) Negative (Negative) 10/02/22 03:30 SARS-CoV-2, RNA, NAAT NEGATIVE (NEGATIVE) 10/01/22 23:45 Impressions Chest X-Ray 10/01/22 23:16 XR chest 1V portable CLINICAL HISTORY: Sepsis. COMPARISON STUDY: Chest radiograph October 14, 2015. Chest CT September 05, 2022. FINDINGS: There is no pneumothorax. No definite pleural effusion. Right hilar and right paratracheal lymphadenopathy is better depicted on prior CT of September 05, 2022. There are bibasilar opacities, predominantly linear in configuration. Cardiac size is normal. There is no evidence for pulmonary edema. IMPRESSION: 1. Right hilar and right paratracheal lymphadenopathy better depicted on prior chest CT. 2. Bibasilar opacities. Atelectasis is favored although developing pneumonia could appear similar. ACT 112: Negative or not required by law. Electronically signed by: Savage Dick M.D. 10/02/2022 7:[address] 10/02/22 11:54 CT chest diagnostic wo con CT DOSE: 397.71 mGy.cm HISTORY: increased shortness of breath, PNA vs. malignancy TECHNIQUE: Multiaxial CT images of the chest were performed without contrast. A dose lowering technique was utilized adhering to the principles of ALARA. COMPARISON: Chest 10/01/2022. Chest CT 09/05/2022. FINDINGS: Limited views of the upper abdomen demonstrate a normal spleen and adrenal glands. There is a septated partially visualized 10 cm right renal cyst. There is a stable 1 cm hypodense lesion within the left hepatic lobe. This favors a cyst. No pleural or pericardial effusions. The heart remains normal in size. There is a normal caliber esophagus. Moderate calcified plaque within the normal caliber thoracic aorta. There is severe coronary artery calcifications again noted. There are severe calcified plaque within the proximal left subclavian artery resulting in moderate to severe stenosis. Bilateral supraclavicular/superior mediastinal lymphadenopathy again noted measuring up to 3.7 cm there is mediastinal and bilateral hilar lymphadenopathy also persist, right greater than left. There is a right hilar/perihilar mass again noted which measures approximately 4.4 cm. Dominant right paratracheal lymph node measures approximately 5.8 x 3.9 cm. Overall, the lymphadenopathy and right hilar/perihilar mass are similar in size compared to the prior study. There is a trace right pleural effusion. Right pleural calcified plaques again noted. No suspicious lytic or blastic osseous lesions. Emphysema again noted. No pneumothorax. Complete occlusion of the anterior segmental bronchus of the right upper lobe due to the mass. There is mild right bronchial wall thickening with partial opacification of the right middle and lower lobe bronchi with mucoid material. This has progressed in the interval. Interval development of bibasilar consolidative and groundglass airspace opacities consistent with a pneumonia. This could be due to aspiration. Suture material within the right lung base is noted consistent with postoperative change. A few additional groundglass and tree-in-bud nodular opacities within the right upper lobe also likely representing an infectious process. IMPRESSION: 1. Redemonstration of the right hilar/perihilar 4.4 cm mass with associated supraclavicular, mediastinal, and hilar lymphadenopathy . This consistent with metastatic disease. 2. Interval development of consolidative and groundglass bibasilar airspace opacities consistent with a pneumonia. This is likely due to aspiration. 3. Additional findings as described above. ACT 112: Negative or not required by law. Electronically signed by: Griffin Herring M.D. 10/02/2022 2:16 PM Hospital Course (1) Pneumonia: Pt is a 81 yo female with PMH of anxiety, COPD, DM, HLD, HTN, and recently dx metastatic cancer to her brain presenting with SOB and cough w/mucous. Acute hypoxic respiratory failure - COPD exacerbation vs. PNA vs. burden of malignancy - no leukocytosis, MRSA neg - blood cx without growth after 48 hours, sputum cx growing pseudomonas and strep pneumo - CXR showed right hilar lymphadenopathy and bibasilar opacities representing atelectasis vs. PNA - CT chest withright hilar/perihilar 4.4 cm mass with associated supraclavicular, mediastinal, and hilar lymphadenopathy . This consistent with metastatic disease. Interval development of consolidative and groundglass bibasilar airspace opacities consistent with a pneumonia. This is likely due to aspiration. - plan to discharge on home inhaler regimen - Was treated with Zosyn and then ceftriaxone, was transitioned to levofloxacin to cover for pseudomonas, with plan for 7 day duration - stable oxygen requirement at 2L, plan to f/u with PCP and wean as tolerated Diabetes mellitus w/ neuropathy - A1c 8.7% - will be discharged on home empagliflozin, glimepiride, and glargine 10 units - continue home gabapentin 400 mg BID, venlafaxine 75 mg daily, and duloxetine 20 mg daily Metastatic cancer to brain - recently diagnosed, presumptive lung primary - plans for radiation oncology w/ Dr. Thomas, plan to resume Wednesday Anxiety/depression - continue medications as above Hyperlipidemia Continue simvastatin GERD - continue pantoprazole 40 mg daily (2) S/P lobectomy of lung: (3) Hypertension: (4) Metastatic cancer: (5) Brain mass: (6) Anxiety: (7) Ambulatory dysfunction: Total Time Total Time Spent Total Time Spent (In Minutes): 35 Discharge Plan Discharge Items Patient Disposition: Home - Home Health Services Reason For Visit: ACUTE RESP FAILURE WITH HYPOXIA,PNEUMONIA,COPD EX Discharge Diagnosis: Acute hypoxic respiratory failure Activity: Per Instructions section Non-emergency contact: Primary Care Provider Call non-emergency contact if: you have any medication questions Follow-up/Referrals: Chuck Martinez M.D. [Primary Care Provider] - (Please call your primary care provider to schedule a follow up I was unable to reach them to do this for you.) Diet: Regular Addtl Attending Provider Instructions: You were admitted and treated for a pneumonia. We treated you with IV a ntibiotics. We will discharge you with an oral antibiotic, levofloxacin. Please take with once a day for the next 5 days. We did not make any other changes to your other home medications. Please call you primary care doctor to make a follow up appointment for the next week. We have set up home oxygen for you and you should continue to use 2L at home, until your follow up with primary care at which point you can discuss weaning it. We have also set up home health and sent a prescription for a transport chair. You will follow up tomorrow for your first radiation appointment. Please call their office to confirm your appointment time. If you were to develop fever/chills, chest pain or worsening shortness of breath, please call your primary care provider or go back to the ED. Pending Studies at Discharge: No Stand-Alone Forms: My [facility] [employer], Smoking Cessation Medications and DC Order Prescriptions: New levofloxacin 750 mg Tablet 750 mg PO Q24H 5 Days Qty: 5 0RF Continued amitriptyline 10 mg tablet 10 mg PO HS duloxetine 20 mg capsule,delayed release(DR/EC) 20 mg PO DAILY fluticasone propionate 50 mcg/actuation spray,suspension 2 spray intranasal DAILY Rx Instructions: administer into each nostril gabapentin 400 mg capsule 400 mg PO BID hydromorphone 2 mg tablet 1 mg PO Q4H PRN (Reason: Pain) insulin glargine [Lantus Solostar U-100 Insulin] 100 unit/mL (3 mL) insulin pen 10 unit subcut QPM Patient Comments: Taper doses until weaned off dexamethasone lisinopril 2.5 mg tablet 2.5 mg PO DAILY Patient Comments: has not been taking insulin aspart U-100 [Novolog U-100 Insulin aspart] 100 unit/mL solution 1 sliding scale dose subcut ACHS Patient Comments: 2:50>150 before each meal and before bed Rx Instructions: 2:50>150 BSG SLIDING SCALE. olanzapine 5 mg tablet 5 mg PO QPM polyethylene glycol 3350 [Miralax] 17 gram/dose powder 17 g PO BID roflumilast 500 mcg tablet 500 mcg PO DAILY sennosides-docusate sodium [Senna with Docusate Sodium] 8.6-50 mg tablet 2 tab-cap PO BID simvastatin 20 mg tablet 20 mg PO DAILY multivitamin Tablet 1 tab PO DAILY omeprazole 40 mg capsule,delayed release(DR/EC) 40 mg PO DAILY dexamethasone 4 mg tablet 4 mg PO DAILY 5 Days Qty: 5 0RF Rx Instructions: STARTED 09/28/22 FOR 5 DAYS. Take one pill by mouth one hour prior to each radiation treatment. venlafaxine 75 mg capsule,extended release 24hr 75 mg PO DAILY ipratropium-albuterol 0.5 mg-3 mg(2.5 mg base)/3 mL solution for nebulization 3 ml INHALATION Q6H PRN (Reason: Wheezing) acetaminophen [Tylenol Extra Strength] 500 mg Tablet 500 mg PO Q6H PRN (Reason: Pain) glimepiride 2 mg tablet 2 mg PO BID lorazepam 0.5 mg tablet 0.5 mg PO Q6H PRN (Reason: Anxiety) desloratadine 5 mg tablet 5 mg PO DAILY PRN (Reason: Congestion) albuterol sulfate 90 mcg/actuation HFA aerosol inhaler 2 puff INHALATION 6XD budesonide-formoterol [Symbicort] 160-4.5 mcg/actuation HFA aerosol inhaler 2 inh INHALATION BID Jardiance 25 mg tablet 25 mg PO QAM Discharge Orders: Discharge Order (Routine); Ordered 10/06/22 Ordered By: Marilou Almanzar Admission Data Admit Date/Time: 10/02/22 00:49 Attending Provider: Ayush Pérez Admit Provider: Ben Frankel Primary Care Provider: Chuck Martinez Other Providers: Ben Frankel ; [facility] Other Interventions: Discharge Summary Assessment (RN) Last Done: 10/06/22 14:42 Supervising Physician Co-Signing Physician Notes Attending attestation Pt seen and examined in concert with Dr. Almanzar. In agreement with the documented findings as noted in the resident documentation with any exceptions or additions as noted here. Comfortable on 1-2L NC and overall improved fatigue and SOB. On examination, S1/S2 nl RRR no MCG. CTAB. Abd NT/ND BS+ve Acute on chronic hypoxic respiratory failure in the setting of CAP with underlying neoplastic lung disease - sputum Cx w/ pseudomonas and strep pneumoniae. Tolerating levofloxacin well, to complete course as noted. Metastatic lung disease - resume radiation therapy Wednesday per family discussion. Else see resident documentation as noted. Total attending physician time spent with this patient's care on the day of discharge: 35 minutes.
== END 2022-10-06 14:59 | disposition home health service (06) | DRG 871 ==
LOC: ED 23:07 → SUATTDRO 10-02 00:49 → 2S 10-02 00:49
DX: F32.A Depression, unspecified; Z79.82 Long term (current) use of aspirin; J18.9 Pneumonia, unspecified organism; E66.9 Obesity, unspecified; A41.9 Sepsis, unspecified organism; Z66 Do not resuscitate; F41.9 Anxiety disorder, unspecified; J96.01 Acute respiratory failure with hypoxia; J44.9 Chronic obstructive pulmonary disease, unspecified; I10 Essential (primary) hypertension; E78.5 Hyperlipidemia, unspecified; G89.29 Other chronic pain; E11.40 Type 2 diabetes mellitus with diabetic neuropathy, unspecified; J44.1 Chronic obstructive pulmonary disease with (acute) exacerbation; C34.90 Malignant neoplasm of unspecified part of unspecified bronchus or lung; C79.31 Secondary malignant neoplasm of brain; Z79.4 Long term (current) use of insulin; Z79.899 Other long term (current) drug therapy

== ENCOUNTER 2023-01-27 18:41 | Observation (INO) ==
[2023-01-27 19:21] LABS: Basophils # (auto) 0.02 K/uL (0.00-0.20); Basophils % (auto) 0.6 %; Eosinophils # (auto) 0.01 K/uL (0.00-0.50); Eosinophils % (auto) 0.3 %; Hemoglobin 11.9 g/dl (12.0-16.0); Lymphocytes # (auto) 0.64 K/uL (1.20-3.40); Lymphocytes % (auto) 19.3 %; Mean Corpuscular Hemoglobin 31.2 pg (25.0-34.0); Mean Corpuscular Hgb Conc 32.2 g/dL (32.0-36.0); Mean Corpuscular Volume 96.9 fL (80.0-100.0); Mean Platelet Volume 10.2 fL (9.4-12.4); Monocytes # (auto) 0.54 K/uL (0.11-0.59); Monocytes % (auto) 16.3 %; Neutrophils % (auto) 60.5 %; Platelet Count 180 K/uL (130-400); RDW Standard Deviation 54.4 fL (36.4-46.3); Red Blood Count 3.82 M/uL (4.20-5.40); White Blood Count 3.31 K/ul (4.8-10.8)
--- NOTE | 2023-01-27 19:27 | Emergency Department Note ---
Impression & Plan Syncope, Weakness, Fall ED Provider Note NAME: GURINDER CLINE AGE: 82 SEX: F : 1940 ARRIVES VIA: Ambulance INFORMANT: Patient, Daughter ED PROVIDER(S): Jason Pederson DO CHIEF COMPLAINT: syncope HPI: Patient is an 82-year-old female who presents the ER following a syncopal episode. She has a past medical history of metastatic small cell lung cancer. She notes she was getting a PET scan and got an injection. When she got home she was going into the bathroom and got very nauseated and passed out. She was covered in diarrhea. She is unable to get herself up. She been feeling very weak and unable to get around. Denies any headache or new neck pain. No chest pain or shortness of breath. Chronically on 2 L nasal cannula. She notes that she has not been eating or drinking much. No dysuria, urgency, or frequency. No other exacerbating or remitting factors. PAST MEDICAL HISTORY:See Below PAST SURGICAL HISTORY:See Below FAMILY HISTORY:See Below SOCIAL HISTORY:See Below HOME MEDICATIONS:See Below ALLERGIES:See Below VITALS:See Below PHYSICAL EXAMINATION: GENERAL: alert, ill-appearing, disheveled HEAD: normal cephalic, atraumatic EYE EXAM: normal conjunctiva, PERRL and EOM's grossly intact OROPHARYNX: mucous membranes are moist NECK: supple, no nuchal rigidity, no adenopathy, non-tender CHEST: stable to compression anteriorly and posteriorly LUNGS: clear to auscultation. Normal chest wall mechanics HEART: no murmurs, S1 normal and S2 normal ABDOMEN: abdomen soft, non-tender, normo-active bowel sounds, no masses, no rebound or guarding. PELVIS: stable to compression anteriorly and posteriorly BACK: Back is symmetrical on inspection and there is no deformity, no midline tenderness, no CVA tenderness. UPPER EXTREMITIES: full active and passive range of motion of all joints without tenderness to palpation LOWER EXTREMITIES: full active and passive range of motion of all joints without tenderness to palpation NEURO EXAM: Normal sensorium, cranial nerves II-XII grossly intact, normal speech, no gross weakness of arms, no gross weakness of legs. GCS: 15. MEDICAL DECISION MAKING: Patient is a 2-year-old female who presents ER for above-stated complaint. IV was established blood was obtained. Labs show mild leukopenia 3.3 fairly consistent with previous. Hemoglobin 11.9. BMP was unremarkable. LFTs bilirubin and troponin was negative. Lipase was normal. UA was clean. CT head cervical spine and abdomen pelvis was unremarkable. Chest x-ray was clean. EKG was nondiagnostic. Patient was given IV fluids. Daughter who was present at bedside was concerned that she may have a seizure as when she went into the room she was on the ground shaking. When she woke up she was a little confused. History would suggest otherwise that this was likely a vasovagal episode but cannot be certain. Following this she was unable to get around at home as she was too weak consequently was brought in. With this case was discussed with the hospitalist for further evaluation management treatment. Triage Nursing notes reviewed. Limited review of prior medical records performed Vital Signs: reviewed and remarkable for no significant abnormalities Differential diagnosis: Differential diagnosis includes etiologies such as vasovagal event, infection, hypoglycemia, electrolyte abnormalities, cardiac sources, intracerebral event, toxicologic, neurologic, as well as others were entertained. ER treatment provided: See below Diagnostics interpreted by me include EKG and cardiac monitoring as listed below: -Cardiac Monitoring: An order was placed for continuous cardiac monitoring. The monitor shows a rate of 92 with sinus rhythm. -ECG: Sinus rhythm rate of 91 Normal axis No PVCs QTc 405 -Laboratory studies:Interpreted by me as stated above in MDM and shown below. Imaging studies: Xrays: As interpreted by me: Chest x-ray shows a right-sided pleural effusion with what is likely metastatic disease when compared to the previous. Effusion is slightly worse CTs show: none Consultation(s): As described in MDM Critical Care: None Past Med/Surg History Medical History (Updated 01/27/23 @ 23:23 by Jason Pederson DO) Anxiety COPD (chronic obstructive pulmonary disease) Diabetes mellitus 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 stable per heme/onc records but requires oxygen therapy History of pneumonia Admitted to [facility] 10/02/22-10/06/22- treated with IV abxs- discharged on levofloxacin Hypercholesteremia Hypertension Metastatic cancer to brain per records On home O2 2L continuously since being d/c with pneumonia Surgical History (Updated 10/28/22 @ 11:34 by Deepali Poe RN) H/O removal of cyst Right breast H/O: hysterectomy Hx of colonoscopy Port-A-Cath in place (10/27/22) Infusaport Insertion, Left Internal Jugular(Left) - Mark Sterling DO S/P cholecystectomy S/P lobectomy of lung 2016, right lung Family History Father Cancer Brain Brother Cancer Sister Cancer Pancreatic Diabetes Son Cancer Liver Diabetes Social History (Updated 10/23/22 @ 09:15 by Deepali Poe, MARSHAL) Smoking Status: Former smoker Tobacco Type: Cigarettes Age Started Using Tobacco: 27; Age Quit Using Tobacco: 62; packs per day: 2; Second Hand Exposure: No; Do You Dip or Chew Tobacco: No; Hx Alcohol Use: No Hx Substance Use: No Preferred Language: Lithuanian Communication Ability: Effective Visual Impairment: No Limitations Hearing Ability: Hard of Hearing Payroll Accounting Manager Required: No Beliefs That Will Affect Care: None marital status: Current Living Situation: Family current occupational status: retired 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 How many Children do You have: 2 Feels Safe at Home: Yes Diet: regular caffeine: Yes (coffee daily) during the past year weight has: remained stable Assistive Devices: Cane, Denture - Upper, Denture - Lower, Glasses, Oxygen - Continuous and Walker Allergies Allergies Allergy/AdvReac Type Severity Reaction Status Date / Time No Known Allergies Allergy Verified 01/27/23 20:29 Home Meds Home Medications Medication Instructions Recorded Confirmed amitriptyline 10 mg tablet 10 mg PO HS 09/15/22 01/27/23 duloxetine 20 mg capsule,delayed 20 mg PO QPM 09/15/22 01/27/23 release fluticasone propionate 50 2 spray intranasal DAILY PRN 09/15/22 01/27/23 mcg/actuation nasal Congestion spray,suspension gabapentin 400 mg capsule 400 mg PO BID 09/15/22 01/27/23 hydromorphone 2 mg tablet 1 mg PO Q4H PRN Pain 09/15/22 01/27/23 lisinopril 2.5 mg tablet 2.5 mg PO QAM 09/15/22 01/27/23 multivitamin 1 tab PO DAILY 09/15/22 01/27/23 olanzapine 5 mg tablet 5 mg PO QPM 09/15/22 01/27/23 omeprazole 40 mg capsule,delayed 40 mg PO HS 09/15/22 01/27/23 release roflumilast 500 mcg tablet 500 mcg PO QAM 09/15/22 01/27/23 simvastatin 20 mg tablet 20 mg PO QAM 09/15/22 01/27/23 acetaminophen 500 mg tablet 500 mg PO Q6H PRN Pain 10/02/22 01/27/23 (Tylenol Extra Strength) budesonide-formoterol HFA 160 2 inh inhalation BID 10/02/22 01/27/23 mcg-4.5 mcg/actuation aerosol inhaler (Symbicort) desloratadine 5 mg tablet 5 mg PO DAILY PRN Congestion 10/02/22 01/27/23 empagliflozin 25 mg tablet 25 mg PO QAM 10/02/22 01/27/23 (Jardiance) glimepiride 2 mg tablet 2 mg PO BID 10/02/22 01/27/23 ipratropium 0.5 mg-albuterol 3 mg 3 ml inhalation Q6H PRN Wheezing 10/02/22 01/27/23 (2.5 mg base)/3 mL nebulization soln lorazepam 0.5 mg tablet 0.5 mg PO Q6H PRN Anxiety 10/02/22 01/27/23 albuterol sulfate 90 mcg/actuation 2 puff inhalation Q4H PRN 10/16/22 01/27/23 aerosol inhaler Shortness Of Breath insulin aspart U-100 100 unit/mL 1 sliding scale dose subcut 10/16/22 01/27/23 subcutaneous solution (Novolog .Before each meal TID U-100 Insulin aspart) ondansetron HCl 8 mg tablet 8 mg PO Q8H PRN Nausea 10/16/22 01/27/23 polyethylene glycol 3350 17 17 g PO BID PRN Constipation 10/16/22 01/27/23 gram/dose oral powder (Miralax) sennosides 8.6 mg-docusate sodium 2 tab-cap PO BID PRN Constipation 10/16/22 01/27/23 50 mg tablet (Senna with Docusate Sodium) Results & Data (ED) Vital Signs Vital Signs - 24 hr 01/27/23 18:49 01/27/23 18:55 01/27/23 19:00 Temperature 36.6 C Temperature Source Oral Pulse Rate 89 90 87 Pulse Rate from SpO2 Sensor 83 Respiratory Rate 20 22 Respiratory Effort / Characteristics Non-Labored Respiratory Depth Normal Respiratory Pattern Regular Blood Pressure 120/74 120/74 Blood Pressure Mean 89 89 Pulse Oximetry 96 98 Oxygen Delivery Method Room Air Nasal Cannula Oxygen Flow Rate 2 Sepsis Recent Fever Within 48 Hours No Sepsis New/Unexplained Change in Mental Status N/A Sepsis Action Taken by Nursing No Action Required 01/27/23 19:30 01/27/23 20:00 01/27/23 20:30 Temperature Temperature Source Pulse Rate 93 H 94 H 96 H Pulse Rate from SpO2 Sensor Respiratory Rate 26 H 21 17 Respiratory Effort / Characteristics Respiratory Depth Respiratory Pattern Blood Pressure 126/84 120/71 127/86 Blood Pressure Mean 98 87 99 Pulse Oximetry 97 96 97 Oxygen Delivery Method Nasal Cannula Nasal Cannula Nasal Cannula Oxygen Flow Rate 2 2 Sepsis Recent Fever Within 48 Hours Sepsis New/Unexplained Change in Mental Status Sepsis Action Taken by Nursing Laboratory Data 01/27/23 19:05 01/27/23 19:05 Lab Results 01/27/23 01/27/23 01/27/23 Range/Units 19:05 19:05 19:55 WBC 3.31 L (4.8-10.8) K/ul RBC 3.82 L (4.20-5.40) M/uL Hgb 11.9 L (12.0-16.0) g/dl Hct 37.0 (37.0-47.0) % MCV 96.9 (80.0-100.0) fL MCH 31.2 (25.0-34.0) pg MCHC 32.2 (32.0-36.0) g/dL RDW Std Deviation 54.4 H (36.4-46.3) fL RDW Coeff of Jose Angel 16.0 H (11.5-14.5) % Plt Count 180 (130-400) K/uL MPV 10.2 (9.4-12.4) fL Immature Gran % (Auto) 3.0 % Neut % (Auto) 60.5 % Lymph % (Auto) 19.3 % [place] % (Auto) 16.3 % Eos % (Auto) 0.3 % Baso % (Auto) 0.6 % Neut # (Auto) 2.00 (1.40-6.50) K/uL Lymph # (Auto) 0.64 L (1.20-3.40) K/uL [place] # (Auto) 0.54 (0.11-0.59) K/uL Eos # (Auto) 0.01 (0.00-0.50) K/uL Baso # (Auto) 0.02 (0.00-0.20) K/uL Immature Gran # (Auto) 0.10 (0.01-0.20) K/uL Sodium 140 (136-145) mmol/L Potassium TNP Chloride 105 (98-107) mmol/L Carbon Dioxide 27 (21-32) mmol/L Anion Gap 8 (3-11) BUN 14 (6-23) mg/dl Creatinine 0.81 (0.6-1.2) mg/dl Est Cr Clr Drug Dosing 45.4 ml/min Est GFR ( Amer) 78.4 ml/min Est GFR (Non-Af Amer) 67.6 ml/min BUN/Creatinine Ratio 17.3 (10-20) Glucose 161 H (70-99(Fasting)) mg/dl Calcium 8.6 (8.6-10.3) mg/dl Total Bilirubin 0.4 (0.2-1.0) mg/dl AST TNP ALT 11 (7-52) U/L Alkaline Phosphatase 55 (34-104) U/L Troponin I High Sens 4.5 (0-14) pg/ml Total Protein 6.2 (6.0-8.3) gm/dl Albumin 3.8 (3.4-5.0) gm/dl Globulin 2.4 L (2.5-4.0) gm/dl Albumin/Globulin Ratio 1.6 (0.9-2) Lipase 38 (11-82) U/L Urine Color Yellow Urine Appearance Clear (Clear) Urine pH 7.0 (4.5-7.5) Ur Specific [place] 1.015 (1.000-1.030) Urine Protein Negative (Negative) Urine Glucose (UA) 3+ H (Negative) Urine Ketones Negative (Negative) Urine Blood Negative (Negative) Urine Nitrite Negative (Negative) Urine Bilirubin Negative (Negative) Urine Urobilinogen Negative (Negative) Ur Leukocyte Esterase Negative (Negative) 01/27/23 01/27/23 Range/Units 20:07 22:38 WBC (4.8-10.8) K/ul RBC (4.20-5.40) M/uL Hgb (12.0-16.0) g/dl Hct (37.0-47.0) % MCV (80.0-100.0) fL MCH (25.0-34.0) pg MCHC (32.0-36.0) g/dL RDW Std Deviation (36.4-46.3) fL RDW Coeff of Jose Angel (11.5-14.5) % Plt Count (130-400) K/uL MPV (9.4-12.4) fL Immature Gran % (Auto) % Neut % (Auto) % Lymph % (Auto) % [place] % (Auto) % Eos % (Auto) % Baso % (Auto) % Neut # (Auto) (1.40-6.50) K/uL Lymph # (Auto) (1.20-3.40) K/uL [place] # (Auto) (0.11-0.59) K/uL Eos # (Auto) (0.00-0.50) K/uL Baso # (Auto) (0.00-0.20) K/uL Immature Gran # (Auto) (0.01-0.20) K/uL Sodium (136-145) mmol/L Potassium 4.0 Chloride (98-107) mmol/L Carbon Dioxide (21-32) mmol/L Anion Gap (3-11) BUN (6-23) mg/dl Creatinine (0.6-1.2) mg/dl Est Cr Clr Drug Dosing ml/min Est GFR ( Amer) ml/min Est GFR (Non-Af Amer) ml/min BUN/Creatinine Ratio (10-20) Glucose (70-99(Fasting)) mg/dl Calcium (8.6-10.3) mg/dl Total Bilirubin (0.2-1.0) mg/dl AST 15 ALT (7-52) U/L Alkaline Phosphatase (34-104) U/L Troponin I High Sens 5.1 (0-14) pg/ml Total Protein (6.0-8.3) gm/dl Albumin (3.4-5.0) gm/dl Globulin (2.5-4.0) gm/dl Albumin/Globulin Ratio (0.9-2) Lipase (11-82) U/L Urine Color Urine Appearance (Clear) Urine pH (4.5-7.5) Ur Specific [place] (1.000-1.030) Urine Protein (Negative) Urine Glucose (UA) (Negative) Urine Ketones (Negative) Urine Blood (Negative) Urine Nitrite (Negative) Urine Bilirubin (Negative) Urine Urobilinogen (Negative) Ur Leukocyte Esterase (Negative) Administered Medications Discontinued Medications Ioversol (Optiray 320 100ml) 91 ml IV ONCE ONE Stop: 01/27/23 21:03 Last Admin: 01/27/23 21:03 Dose: 91 ml Documented By: ISABELLE Imaging Data Radiologist's Impression: Abdomen/Pelvis CT 01/27/23 19:23 Exam(s): CT ABDOMEN + PELVIS With Contrast IV Amt: 91 ml optiray 320 EXAM: CT Abdomen and Pelvis With Intravenous Contrast CLINICAL HISTORY: Reason for exam: fall. TECHNIQUE: Axial computed tomography images of the abdomen and pelvis with intravenous contrast. Automated exposure control was utilized for the study. A dose lowering technique was utilized adhering to the principles of ALARA. CONTRAST: Patient received 91 ml optiray 320 of IV contrast COMPARISON: No relevant prior studies available. FINDINGS: Lung bases: Unremarkable. No mass. No consolidation. ABDOMEN: Liver: Unremarkable. No mass. Gallbladder and bile ducts: Cholecystectomy. No ductal dilation. Pancreas: Unremarkable. No mass. No ductal dilation. Spleen: Unremarkable. No splenomegaly. Adrenals: Unremarkable. No mass. Kidneys and ureters: Multilobulated, large RIGHT upper pole renal cystic lesion measures 10.0 x 9.1 cm. RIGHT midpole renal cyst measures 6.5 x 6.0 cm. Stomach and bowel: Mild wall thickening of small bowel in the pelvis, correlate for mild enteritis. Diverticulosis, without acute diverticulitis. No small bowel obstruction. No free intraperitoneal air. PELVIS: Appendix: Normal appendix. Bladder: Unremarkable. No mass. Reproductive: Hysterectomy. ABDOMEN and PELVIS: Intraperitoneal space: Unremarkable. No free air. No significant fluid collection. Bones/joints: Degenerative changes of the spine. Old compression deformity of T12. No dislocation. Soft tissues: Unremarkable. Vasculature: Atherosclerotic changes of the aorta. No abdominal aortic aneurysm. Lymph nodes: Unremarkable. No enlarged lymph nodes. IMPRESSION: 1. Normal appendix. 2. Mild wall thickening of small bowel in the pelvis, correlate for mild enteritis. 3. Cholecystectomy. 4. Hysterectomy. No traumatic findings. Electronically signed by: Ramu Torres MD 01/27/23 21:[address] 01/27/23 19:23 Exam(s): CT C SPINE EXAM: CT Cervical Spine Without Intravenous Contrast CLINICAL HISTORY: Reason for exam: fall. TECHNIQUE: Axial computed tomography images of the cervical spine without intravenous contrast. Automated exposure control was utilized for the study. A dose lowering technique was utilized adhering to the principles of ALARA. COMPARISON: No relevant prior studies available. Clip FINDINGS: The vertebral body heights are maintained. The craniocervical junction is intact. The atlanto-dens interval is maintained. The dens is intact. There is no spondylolisthesis. Multilevel cervical spondylosis and degenerative disc disease. Straightening of the cervical lordosis. LEFT central venous catheter partially included in the [id number]. The unenhanced neck soft tissues are grossly unremarkable. The visualized lung apices are grossly clear. IMPRESSION: No acute fracture or subluxation of the cervical spine. Electronically signed by: Ramu Torres MD 01/27/23 21:[address] 01/27/23 19:23 Exam(s): CT HEAD Without Contrast EXAM: CT Head Without Intravenous Contrast CLINICAL HISTORY: Reason for exam: fall. TECHNIQUE: Axial computed tomography images of the head/brain without intravenous contrast. Automated exposure control was utilized for the study. A dose lowering technique was utilized adhering to the principles of ALARA. COMPARISON: Brain MRI December 11, 2022. FINDINGS: No acute intracranial hemorrhage. No midline shift or mass effect. Partially calcified mass in the RIGHT temporal lobe, measures 2.7 x 2.1 cm. Correlate with MRI from December 11, 2022. The territorial ivey-white matter differentiation is maintained throughout. Age-related cerebral volume loss. Periventricular and subcortical white matter hypoattenuation, consistent with chronic microangiopathy. The visualized orbits appear grossly unremarkable. The calvarium is intact. The visualized paranasal sinuses and mastoid air cells are grossly clear. IMPRESSION: No acute intracranial hemorrhage. Partially calcified mass in the RIGHT temporal lobe, measures 2.7 x 2.1 cm. Correlate with MRI from December 11, 2022. Electronically signed by: Ramu Torres MD 01/27/23 21:18 PM Discharge Plan Visit Data Chief Complaint: Dizziness Stated Complaint: DIZZINESS ED Provider: Jason Pederson Discharge Problem: Syncope, Weakness, Fall Forms Stand Alone Forms: [facility] Prescriptions Prescriptions: No Action amitriptyline 10 mg tablet 10 mg PO HS duloxetine 20 mg capsule,delayed release(DR/EC) 20 mg PO QPM fluticasone propionate 50 mcg/actuation spray,suspension 2 spray intranasal DAILY PRN (Reason: Congestion) Rx Instructions: administer into each nostril gabapentin 400 mg capsule 400 mg PO BID hydromorphone 2 mg tablet 1 mg PO Q4H PRN (Reason: Pain) Patient Comments: has not taken these since she was in the hospital lisinopril 2.5 mg tablet 2.5 mg PO QAM Patient Comments: has not been taking olanzapine 5 mg tablet 5 mg PO QPM roflumilast 500 mcg tablet 500 mcg PO QAM simvastatin 20 mg tablet 20 mg PO QAM multivitamin Tablet 1 tab PO DAILY omeprazole 40 mg capsule,delayed release(DR/EC) 40 mg PO HS insulin aspart U-100 [Novolog U-100 Insulin aspart] 100 unit/mL solution 1 sliding scale dose subcut .Before each meal TID Patient Comments: 2:50>150 before each meal and before bed Rx Instructions: 2:50>150 BSG SLIDING SCALE. polyethylene glycol 3350 [Miralax] 17 gram/dose powder 17 g PO BID PRN (Reason: Constipation) sennosides-docusate sodium [Senna with Docusate Sodium] 8.6-50 mg tablet 2 tab-cap PO BID PRN (Reason: Constipation) ondansetron HCl 8 mg tablet 8 mg PO Q8H PRN (Reason: Nausea) ipratropium-albuterol 0.5 mg-3 mg(2.5 mg base)/3 mL solution for nebulization 3 ml INHALATION Q6H PRN (Reason: Wheezing) acetaminophen [Tylenol Extra Strength] 500 mg Tablet 500 mg PO Q6H PRN (Reason: Pain) glimepiride 2 mg tablet 2 mg PO BID lorazepam 0.5 mg tablet 0.5 mg PO Q6H PRN (Reason: Anxiety) desloratadine 5 mg tablet 5 mg PO DAILY PRN (Reason: Congestion) budesonide-formoterol [Symbicort] 160-4.5 mcg/actuation HFA aerosol inhaler 2 inh INHALATION BID Jardiance 25 mg tablet 25 mg PO QAM albuterol sulfate 90 mcg/actuation HFA aerosol inhaler 2 puff INHALATION Q4H PRN (Reason: Shortness Of Breath) Referrals Referrals: Chuck Martinez M.D. [Primary Care Provider] -
[2023-01-27 19:58] LABS: Alanine Aminotransferase 11 U/L (7-52); Albumin Globulin Ratio 1.6 (0.9-2); Albumin Level 3.8 gm/dl (3.4-5.0); Alkaline Phosphatase 55 U/L (34-104); Anion Gap 8 (3-11); BUN Creatinine Ratio 17.3 (10-20); Bilirubin,Total 0.4 mg/dl (0.2-1.0); Blood Urea Nitrogen 14 mg/dl (6-23); Calcium 8.6 mg/dl (8.6-10.3); Carbon Dioxide 27 mmol/L (21-32); Chloride 105 mmol/L (98-107); Creatinine Clr Calc Pharmacy 45.4 ml/min; Est GFR (African American) 78.4 ml/min; Est GFR (Non-African American) 67.6 ml/min; Globulin 2.4 gm/dl (2.5-4.0); Glucose 161 mg/dl (70-99(Fasting)); Lipase 38 U/L (11-82); Sodium 140 mmol/L (136-145); Total Protein 6.2 gm/dl (6.0-8.3); Troponin I High Sensitivity 4.5 pg/ml (0-14)
[2023-01-27 20:08] LABS: Appearance Urine Clear (Clear); Bilirubin Urine Negative (Negative); Blood Urine Negative (Negative); Color Urine Yellow; Glucose Urine UA 3+ (Negative); Ketones Urine Negative (Negative); Leukocyte Esterase Urine Negative (Negative); Nitrite Urine Negative (Negative); Protein Urine Negative (Negative); Specific Gravity Urine 1.015 (1.000-1.030); Urobilinogen Urine Negative (Negative)
[2023-01-27] MEDS ORDERED: OPTIRAY 320 100ml IV ONE ×2 (20:54→21:02)
--- NOTE | 2023-01-27 21:19 | CT Scan Report ---
Exam(s): CT HEAD Without Contrast EXAM: CT Head Without Intravenous Contrast CLINICAL HISTORY: Reason for exam: fall. TECHNIQUE: Axial computed tomography images of the head/brain without intravenous contrast. Automated exposure control was utilized for the study. A dose lowering technique was utilized adhering to the principles of ALARA. COMPARISON: Brain MRI December 11, 2022. FINDINGS: No acute intracranial hemorrhage. No midline shift or mass effect. Partially calcified mass in the RIGHT temporal lobe, measures 2.7 x 2.1 cm. Correlate with MRI from December 11, 2022. The territorial ivey-white matter differentiation is maintained throughout. Age-related cerebral volume loss. Periventricular and subcortical white matter hypoattenuation, consistent with chronic microangiopathy. The visualized orbits appear grossly unremarkable. The calvarium is intact. The visualized paranasal sinuses and mastoid air cells are grossly clear. IMPRESSION: No acute intracranial hemorrhage. Partially calcified mass in the RIGHT temporal lobe, measures 2.7 x 2.1 cm. Correlate with MRI from December 11, 2022. Electronically signed by: Ramu Torres MD 01/27/23 21:18 PM
--- NOTE | 2023-01-27 21:20 | CT Scan Report ---
Exam(s): CT C SPINE EXAM: CT Cervical Spine Without Intravenous Contrast CLINICAL HISTORY: Reason for exam: fall. TECHNIQUE: Axial computed tomography images of the cervical spine without intravenous contrast. Automated exposure control was utilized for the study. A dose lowering technique was utilized adhering to the principles of ALARA. COMPARISON: No relevant prior studies available. Clip FINDINGS: The vertebral body heights are maintained. The craniocervical junction is intact. The atlanto-dens interval is maintained. The dens is intact. There is no spondylolisthesis. Multilevel cervical spondylosis and degenerative disc disease. Straightening of the cervical lordosis. LEFT central venous catheter partially included in the [id number]. The unenhanced neck soft tissues are grossly unremarkable. The visualized lung apices are grossly clear. IMPRESSION: No acute fracture or subluxation of the cervical spine. Electronically signed by: Ramu Torres MD 01/27/23 21:19 PM
--- NOTE | 2023-01-27 21:51 | CT Scan Report ---
Exam(s): CT ABDOMEN + PELVIS With Contrast IV Amt: 91 ml optiray 320 EXAM: CT Abdomen and Pelvis With Intravenous Contrast CLINICAL HISTORY: Reason for exam: fall. TECHNIQUE: Axial computed tomography images of the abdomen and pelvis with intravenous contrast. Automated exposure control was utilized for the study. A dose lowering technique was utilized adhering to the principles of ALARA. CONTRAST: Patient received 91 ml optiray 320 of IV contrast COMPARISON: No relevant prior studies available. FINDINGS: Lung bases: Unremarkable. No mass. No consolidation. ABDOMEN: Liver: Unremarkable. No mass. Gallbladder and bile ducts: Cholecystectomy. No ductal dilation. Pancreas: Unremarkable. No mass. No ductal dilation. Spleen: Unremarkable. No splenomegaly. Adrenals: Unremarkable. No mass. Kidneys and ureters: Multilobulated, large RIGHT upper pole renal cystic lesion measures 10.0 x 9.1 cm. RIGHT midpole renal cyst measures 6.5 x 6.0 cm. Stomach and bowel: Mild wall thickening of small bowel in the pelvis, correlate for mild enteritis. Diverticulosis, without acute diverticulitis. No small bowel obstruction. No free intraperitoneal air. PELVIS: Appendix: Normal appendix. Bladder: Unremarkable. No mass. Reproductive: Hysterectomy. ABDOMEN and PELVIS: Intraperitoneal space: Unremarkable. No free air. No significant fluid collection. Bones/joints: Degenerative changes of the spine. Old compression deformity of T12. No dislocation. Soft tissues: Unremarkable. Vasculature: Atherosclerotic changes of the aorta. No abdominal aortic aneurysm. Lymph nodes: Unremarkable. No enlarged lymph nodes. IMPRESSION: 1. Normal appendix. 2. Mild wall thickening of small bowel in the pelvis, correlate for mild enteritis. 3. Cholecystectomy. 4. Hysterectomy. No traumatic findings. Electronically signed by: Ramu Torres MD 01/27/23 21:50 PM
[2023-01-27] MEDS ORDERED: ACETAMINOPHEN 500 MG TAB PO STA (23:43)
--- NOTE | 2023-01-28 01:04 | History & Physical Report ---
Date of Service January 28, 2023 Assessment & Plan (1) Syncope: Plan: 82yo female with history of metastatic lung cancer presenting from home after a syncopal event. Patient reports that she did not eat anything today because she had her PET scan. She was rushing around to get to her study. Here she is afebrile, HD stable. EKG is not concerning -Observation to medical with telemetry -Check orthostatic VS -Repeat troponin -LR at 80mL/hr x 1L -PT/OT evaluation for discharge plan. Patient lives independently and does well at home. (2) Small cell lung cancer: Plan: Chronic. Patient had a PET scan performed today - is to followup on results to determine next step in therapy -Continue home Dilaudid -Continue Neurontin -Continue Cymbalta (3) Hypertension: Plan: Chronic. Blood pressure well controlled -Continue Lisinopril -Monitor (4) Hypercholesteremia: Plan: Chronic. Stable -Continue Simvastatin 20mg po daily (5) COPD (chronic obstructive pulmonary disease): Plan: Chronic. Stable -Continue home O2 -Continue Daliresp -Continue nebs History of Present Illness Chief Complaint: syncope Primary Care Provider: Chuck Martinez Jessica Ontiveros is an 82yo female with history of lung cancer s/p XRT, chemotherapy a nd WBRT to the brain presenting with syncope and weakness. Patient had a PET scan performed today. She got home and went to the bathroom. She reports she leaned forward and was trying to pick something up from the floor when she got dizzy and collapsed. She was unable to get up due to weakness. She does think that she lost consciousness. Patient's friend was there and helped her off the floor and called 911. Denies chest pain, palpitations, seizure activity. She denies nauseas or vomiting. Was having some abdominal pain and some diarrhea as well as nausea which is improving. No additional complaints In the ER she is afebrile, HD stable, NAD Allergies Allergy/AdvReac Type Severity Reaction Status Date / Time No Known Allergies Allergy Verified 01/27/23 20:29 Home Medications Medication Instructions Recorded Confirmed Type amitriptyline 10 mg tablet 10 mg PO HS 09/15/22 01/27/23 History duloxetine 20 mg capsule,delayed 20 mg PO QPM 09/15/22 01/27/23 History release fluticasone propionate 50 2 spray intranasal DAILY PRN 09/15/22 01/27/23 History mcg/actuation nasal Congestion spray,suspension gabapentin 400 mg capsule 400 mg PO BID 09/15/22 01/27/23 History hydromorphone 2 mg tablet 1 mg PO Q4H PRN Pain 09/15/22 01/27/23 History lisinopril 2.5 mg tablet 2.5 mg PO QAM 09/15/22 01/27/23 History multivitamin 1 tab PO DAILY 09/15/22 01/27/23 History olanzapine 5 mg tablet 5 mg PO QPM 09/15/22 01/27/23 History omeprazole 40 mg capsule,delayed 40 mg PO HS 09/15/22 01/27/23 History release roflumilast 500 mcg tablet 500 mcg PO QAM 09/15/22 01/27/23 History simvastatin 20 mg tablet 20 mg PO QAM 09/15/22 01/27/23 History acetaminophen 500 mg tablet 500 mg PO Q6H PRN Pain 10/02/22 01/27/23 History (Tylenol Extra Strength) budesonide-formoterol HFA 160 2 inh inhalation BID 10/02/22 01/27/23 History mcg-4.5 mcg/actuation aerosol inhaler (Symbicort) desloratadine 5 mg tablet 5 mg PO DAILY PRN Congestion 10/02/22 01/27/23 History empagliflozin 25 mg tablet 25 mg PO QAM 10/02/22 01/27/23 History (Jardiance) glimepiride 2 mg tablet 2 mg PO BID 10/02/22 01/27/23 History ipratropium 0.5 mg-albuterol 3 mg 3 ml inhalation Q6H PRN Wheezing 10/02/22 01/27/23 History (2.5 mg base)/3 mL nebulization soln lorazepam 0.5 mg tablet 0.5 mg PO Q6H PRN Anxiety 10/02/22 01/27/23 History albuterol sulfate 90 mcg/actuation 2 puff inhalation Q4H PRN 10/16/22 01/27/23 History aerosol inhaler Shortness Of Breath insulin aspart U-100 100 unit/mL 1 sliding scale dose subcut 10/16/22 01/27/23 History subcutaneous solution (Novolog .Before each meal TID U-100 Insulin aspart) ondansetron HCl 8 mg tablet 8 mg PO Q8H PRN Nausea 10/16/22 01/27/23 History polyethylene glycol 3350 17 17 g PO BID PRN Constipation 10/16/22 01/27/23 History gram/dose oral powder (Miralax) sennosides 8.6 mg-docusate sodium 2 tab-cap PO BID PRN Constipation 10/16/22 01/27/23 History 50 mg tablet (Senna with Docusate Sodium) Past Med/Surg History Medical History Anxiety COPD (chronic obstructive pulmonary disease) Diabetes mellitus 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 stable per heme/onc records but requires oxygen therapy History of pneumonia Admitted to [facility] 10/02/22-10/06/22- treated with IV abxs- discharged on levofloxacin Hypercholesteremia Hypertension Metastatic cancer to brain per records On home O2 2L continuously since being d/c with pneumonia Surgical History H/O removal of cyst Right breast H/O: hysterectomy Hx of colonoscopy Port-A-Cath in place (10/27/22) Infusaport Insertion, Left Internal Jugular(Left) - Mark Sterling DO S/P cholecystectomy S/P lobectomy of lung 2016, right lung Family History Father Cancer Brain Brother Cancer Sister Cancer Pancreatic Diabetes Son Cancer Liver Diabetes Social History Smoking Status: Former smoker Tobacco Type: Cigarettes Age Started Using Tobacco: 27; Age Quit Using Tobacco: 62; packs per day: 2; Second Hand Exposure: No; Do You Dip or Chew Tobacco: No; Hx Alcohol Use: No Hx Substance Use: No Preferred Language: Malian Communication Ability: Effective Visual Impairment: No Limitations Hearing Ability: Hard of Hearing Career Education Teacher Required: No Beliefs That Will Affect Care: None marital status: Current Living Situation: Family current occupational status: retired current occupation: [employer] How many Children do You have: 2 Feels Safe at Home: Yes Diet: regular caffeine: Yes (coffee daily) during the past year weight has: remained stable Assistive Devices: Cane, Denture - Upper, Denture - Lower, Glasses, Oxygen - Continuous and Walker Review of Systems Review of Systems: All systems reviewed & are unremarkable except as noted in HPI & below Physical Exam Physical Exam: General: patient resting comfortably, NAD, non-toxic in appearance, AA&O x 4 Skin: warm, dry, intact, no rashes or lesions HEENT: NC/AT, PERRL, EOMI, anicteric sclera, conjunctiva without injection, external ear normal to inspection and nontender, nares patent, moist mucus membranes, dentition intact, no oropharyngeal lesions, neck supple, trachea midline, no LAD, no thyromegaly, no JVD Heart: +S1/S2, regular, no m/r/g Lungs: equal air entry bilaterally, no rales/rhonchi/wheezes Abd: +BS, soft, NT/ND, no masses/organomegaly/ascites Ext: warm, 2+ pulses in UE/LE bilaterally, no clubbing/cyanosis or edema Neuro: nonfocal, patient AA&O x 4, speech intact, no facial droop, moving all extremities on command with equal strength 5/5 Results & Data Results & Data Vital Signs (Past 12 Hours) Vital Signs Temp Pulse Pulse Resp BP BP Pulse Ox 01/27/23 23:29 87 17 99 01/27/23 23:29 88 17 137/88 99 01/27/23 23:29 99 01/27/23 20:30 96 H 17 127/86 97 01/27/23 20:00 94 H 21 120/71 96 01/27/23 19:30 93 H 26 H 126/84 97 01/27/23 19:00 87 22 120/74 98 01/27/23 18:55 90 01/27/23 18:49 36.6 C 89 20 120/74 96 O2 Del Method O2 Flow Rate 01/27/23 23:29 Nasal Cannula 2 01/27/23 23:29 Nasal Cannula 2 01/27/23 23:29 Nasal Cannula 2 01/27/23 20:30 Nasal Cannula 01/27/23 20:00 Nasal Cannula 2 01/27/23 19:30 Nasal Cannula 2 01/27/23 19:00 Nasal Cannula 2 01/27/23 18:55 01/27/23 18:49 Room Air Laboratory Results Laboratory Results WBC 3.31 K/ul (4.8-10.8) L 01/27/23 19:05 RBC 3.82 M/uL (4.20-5.40) L 01/27/23 19:05 Hgb 11.9 g/dl (12.0-16.0) L 01/27/23 19:05 Hct 37.0 % (37.0-47.0) 01/27/23 19:05 MCV 96.9 fL (80.0-100.0) 01/27/23 19:05 MCH 31.2 pg (25.0-34.0) 01/27/23 19:05 MCHC 32.2 g/dL (32.0-36.0) 01/27/23 19:05 RDW Std Deviation 54.4 fL (36.4-46.3) H 01/27/23 19:05 RDW Coeff of Jose Angel 16.0 % (11.5-14.5) H 01/27/23 19:05 Plt Count 180 K/uL (130-400) 01/27/23 19:05 MPV 10.2 fL (9.4-12.4) 01/27/23 19:05 Immature Gran % (Auto) 3.0 % 01/27/23 19:05 Neut % (Auto) 60.5 % 01/27/23 19:05 Lymph % (Auto) 19.3 % 01/27/23 19:05 [place] % (Auto) 16.3 % 01/27/23 19:05 Eos % (Auto) 0.3 % 01/27/23 19:05 Baso % (Auto) 0.6 % 01/27/23 19:05 Neut # (Auto) 2.00 K/uL (1.40-6.50) 01/27/23 19:05 Lymph # (Auto) 0.64 K/uL (1.20-3.40) L 01/27/23 19:05 [place] # (Auto) 0.54 K/uL (0.11-0.59) 01/27/23 19:05 Eos # (Auto) 0.01 K/uL (0.00-0.50) 01/27/23 19:05 Baso # (Auto) 0.02 K/uL (0.00-0.20) 01/27/23 19:05 Immature Gran # (Auto) 0.10 K/uL (0.01-0.20) 01/27/23 19:05 Sodium 140 mmol/L (136-145) 01/27/23 19:05 Potassium 4.0 mmol/L (3.5-5.1) 01/27/23 20:07 Chloride 105 mmol/L (98-107) 01/27/23 19:05 Carbon Dioxide 27 mmol/L (21-32) 01/27/23 19:05 Anion Gap 8 (3-11) 01/27/23 19:05 BUN 14 mg/dl (6-23) 01/27/23 19:05 Creatinine 0.81 mg/dl (0.6-1.2) 01/27/23 19:05 Est Cr Clr Drug Dosing 45.4 ml/min 01/27/23 19:05 Est GFR ( Amer) 78.4 ml/min 01/27/23 19:05 Est GFR (Non-Af Amer) 67.6 ml/min 01/27/23 19:05 BUN/Creatinine Ratio 17.3 (10-20) 01/27/23 19:05 Glucose 161 mg/dl (70-99(Fasting)) H 01/27/23 19:05 Calcium 8.6 mg/dl (8.6-10.3) 01/27/23 19:05 Total Bilirubin 0.4 mg/dl (0.2-1.0) 01/27/23 19:05 AST 15 U/L (13-39) 01/27/23 20:07 ALT 11 U/L (7-52) 01/27/23 19:05 Alkaline Phosphatase 55 U/L (34-104) 01/27/23 19:05 Troponin I High Sens 5.1 pg/ml (0-14) 01/27/23 22:38 Total Protein 6.2 gm/dl (6.0-8.3) 01/27/23 19:05 Albumin 3.8 gm/dl (3.4-5.0) 01/27/23 19:05 Globulin 2.4 gm/dl (2.5-4.0) L 01/27/23 19:05 Albumin/Globulin Ratio 1.6 (0.9-2) 01/27/23 19:05 Lipase 38 U/L (11-82) 01/27/23 19:05 Urine Color Yellow 01/27/23 19:55 Urine Appearance Clear (Clear) 01/27/23 19:55 Urine pH 7.0 (4.5-7.5) 01/27/23 19:55 Ur Specific [place] 1.015 (1.000-1.030) 01/27/23 19:55 Urine Protein Negative (Negative) 01/27/23 19:55 Urine Glucose (UA) 3+ (Negative) H 01/27/23 19:55 Urine Ketones Negative (Negative) 01/27/23 19:55 Urine Blood Negative (Negative) 01/27/23 19:55 Urine Nitrite Negative (Negative) 01/27/23 19:55 Urine Bilirubin Negative (Negative) 01/27/23 19:55 Urine Urobilinogen Negative (Negative) 01/27/23 19:55 Ur Leukocyte Esterase Negative (Negative) 01/27/23 19:55 Impressions Abdomen/Pelvis CT 01/27/23 19:23 Exam(s): CT ABDOMEN + PELVIS With Contrast IV Amt: 91 ml optiray 320 EXAM: CT Abdomen and Pelvis With Intravenous Contrast CLINICAL HISTORY: Reason for exam: fall. TECHNIQUE: Axial computed tomography images of the abdomen and pelvis with intravenous contrast. Automated exposure control was utilized for the study. A dose lowering technique was utilized adhering to the principles of ALARA. CONTRAST: Patient received 91 ml optiray 320 of IV contrast COMPARISON: No relevant prior studies available. FINDINGS: Lung bases: Unremarkable. No mass. No consolidation. ABDOMEN: Liver: Unremarkable. No mass. Gallbladder and bile ducts: Cholecystectomy. No ductal dilation. Pancreas: Unremarkable. No mass. No ductal dilation. Spleen: Unremarkable. No splenomegaly. Adrenals: Unremarkable. No mass. Kidneys and ureters: Multilobulated, large RIGHT upper pole renal cystic lesion measures 10.0 x 9.1 cm. RIGHT midpole renal cyst measures 6.5 x 6.0 cm. Stomach and bowel: Mild wall thickening of small bowel in the pelvis, correlate for mild enteritis. Diverticulosis, without acute diverticulitis. No small bowel obstruction. No free intraperitoneal air. PELVIS: Appendix: Normal appendix. Bladder: Unremarkable. No mass. Reproductive: Hysterectomy. ABDOMEN and PELVIS: Intraperitoneal space: Unremarkable. No free air. No significant fluid collection. Bones/joints: Degenerative changes of the spine. Old compression deformity of T12. No dislocation. Soft tissues: Unremarkable. Vasculature: Atherosclerotic changes of the aorta. No abdominal aortic aneurysm. Lymph nodes: Unremarkable. No enlarged lymph nodes. IMPRESSION: 1. Normal appendix. 2. Mild wall thickening of small bowel in the pelvis, correlate for mild enteritis. 3. Cholecystectomy. 4. Hysterectomy. No traumatic findings. Electronically signed by: Ramu Torrse MD 01/27/23 21:[address] 01/27/23 19:23 Exam(s): CT C SPINE EXAM: CT Cervical Spine Without Intravenous Contrast CLINICAL HISTORY: Reason for exam: fall. TECHNIQUE: Axial computed tomography images of the cervical spine without intravenous contrast. Automated exposure control was utilized for the study. A dose lowering technique was utilized adhering to the principles of ALARA. COMPARISON: No relevant prior studies available. Clip FINDINGS: The vertebral body heights are maintained. The craniocervical junction is intact. The atlanto-dens interval is maintained. The dens is intact. There is no spondylolisthesis. Multilevel cervical spondylosis and degenerative disc disease. Straightening of the cervical lordosis. LEFT central venous catheter partially included in the [id number]. The unenhanced neck soft tissues are grossly unremarkable. The visualized lung apices are grossly clear. IMPRESSION: No acute fracture or subluxation of the cervical spine. Electronically signed by: Ramu Torres MD 01/27/23 21:[address] 01/27/23:23 Exam(s): CT HEAD Without Contrast EXAM: CT Head Without Intravenous Contrast CLINICAL HISTORY: Reason for exam: fall. TECHNIQUE: Axial computed tomography images of the head/brain without intravenous contrast. Automated exposure control was utilized for the study. A dose lowering technique was utilized adhering to the principles of ALARA. COMPARISON: Brain MRI December 11, 2022. FINDINGS: No acute intracranial hemorrhage. No midline shift or mass effect. Partially calcified mass in the RIGHT temporal lobe, measures 2.7 x 2.1 cm. Correlate with MRI from December 11, 2022. The territorial ivey-white matter differentiation is maintained throughout. Age-related cerebral volume loss. Periventricular and subcortical white matter hypoattenuation, consistent with chronic microangiopathy. The visualized orbits appear grossly unremarkable. The calvarium is intact. The visualized paranasal sinuses and mastoid air cells are grossly clear. IMPRESSION: No acute intracranial hemorrhage. Partially calcified mass in the RIGHT temporal lobe, measures 2.7 x 2.1 cm. Correlate with MRI from December 11, 2022. Electronically signed by: Ramu Torres MD 01/27/23 21:18 PM Code Status & VTE Plan VTE Prophylaxis Plan VTE Prophylaxis will be ordered: Yes PG Care Time/CCT Total # of Minutes Spent Total Time Spent with Patient: Total time spent is greater than 50% in coordination of care (as documented) at patient's floor/unit and/or counseling patient: Coding Level of Care Code 57903 INT INP/OBS CARE 3/75MIN Diagnoses Syncope R55 Small cell lung cancer C34.90 Hypertension I10 Hypercholesteremia E78.00 COPD (chronic obstructive pulmonary disease) J44.9
[2023-01-28] MEDS ORDERED: ALBUT/IPRATROP 3MG/0.5MG NEB 3 ML VIAL INH PRN (01:08)
[2023-01-28] MEDS ORDERED: ONDANSETRON INJ 2 MG/ML 2 ML VIAL IV PRN (01:08)
[2023-01-28] MEDS ORDERED: HYDROmorphone HCL 2 MG TAB PO PRN (01:08)
[2023-01-28] MEDS ORDERED: CARBOHYDRATES FOR HYPOGLYCEMIA PO PRN (01:08)
[2023-01-28] MEDS ORDERED: GLUCAGON FOR INJ 1 MG VIAL SQ PRN (01:08)
[2023-01-28] MEDS ORDERED: DOCUSATE SODIUM/SENNA 50/8.6MG TAB PO PRN (01:08)
[2023-01-28] MEDS ORDERED: GLUCOSE 10 TAB/TUBE PO PRN (01:08)
[2023-01-28] MEDS ORDERED: FLUTICASONE PROPIONATE NA SPR 16 GM BTL PRN (01:08)
[2023-01-28] MEDS ORDERED: ALBUTEROL HFA 8 GM INHALER INH PRN (01:08)
[2023-01-28] MEDS ORDERED: ACETAMINOPHEN 500 MG TAB PO PRN (01:08)
[2023-01-28] MEDS ORDERED: POLYETHYLENE (MIRALAX) 17 GM PACK PO PRN (01:08)
[2023-01-28] MEDS ORDERED: LACTATED RINGER'S 1,000 ML IV SCH (01:08)
[2023-01-28] MEDS ORDERED: LORazepam 0.5 MG TAB PO PRN (01:08)
[2023-01-28] MEDS ORDERED: DEXTROSE 50% 50 ML SYRINGE IV PRN (01:08)
[2023-01-28] MEDS ORDERED: GLUCOSE 40% GEL 15 GM TUBE PO PRN (01:08)
[2023-01-28 03:27] LABS: Magnesium 2.2 mg/dl (1.7-2.4)
[2023-01-28 03:33] LABS: Phosphorus 4.9 mg/dl (2.5-4.9)
[2023-01-28] MEDS ORDERED: ENOXAPARIN INJ 30 MG/0.3 ML SYR SQ SCH (06:00)
[2023-01-28] MEDS ORDERED: INSULIN ASPART PER UNIT CHARGE SC SCH (07:30)
--- NOTE | 2023-01-28 08:05 | XRay Report ---
XR chest 1V portable CLINICAL HISTORY: Chest pain, nonspecific TECHNIQUE: Single frontal radiograph of the chest was obtained. Comparison: Comparison is made to chest radiograph 11/12/2022 FINDINGS: A port catheter is seen. Calcified aortic knob is seen. Right lower lung airspace opacities are seen. Calcified right pleural plaques are noted. No evidence of pleural effusion or pneumothorax. IMPRESSION: No evidence of pneumonia or other acute abnormality. Redemonstration of right lower lung atelectasis and pleural plaques. ACT 112: Negative or not required by law. Electronically signed by: César Day M.D. 01/28/2023 8:04 AM
[2023-01-28 08:20] LABS: Hematocrit (blood only) 36.3 % (37.0-47.0); Hemoglobin 11.8 g/dl (12.0-16.0); Mean Corpuscular Hemoglobin 31.1 pg (25.0-34.0); Mean Corpuscular Hgb Conc 32.5 g/dL (32.0-36.0); Mean Corpuscular Volume 95.8 fL (80.0-100.0); Mean Platelet Volume 9.8 fL (9.4-12.4); Platelet Count 205 K/uL (130-400); RDW Coefficient of Variation 15.9 % (11.5-14.5); RDW Standard Deviation 54.9 fL (36.4-46.3); Red Blood Count 3.79 M/uL (4.20-5.40); White Blood Count 3.14 K/ul (4.8-10.8)
[2023-01-28 08:37] LABS: BUN Creatinine Ratio 21.7 (10-20); Calcium 8.6 mg/dl (8.6-10.3); Creatinine Clr Calc Pharmacy 61.4 ml/min; Est GFR (African American) 98.4 ml/min; Est GFR (Non-African American) 84.9 ml/min
[2023-01-28] MEDS ORDERED: EMPAGLIFLOZIN 25 MG TAB PO SCH (09:00)
[2023-01-28] MEDS ORDERED: FLUTICASONE/VILANTEROL 200/25MCG 14 PUFFS/INHALER INH SCH (09:00)
[2023-01-28] MEDS ORDERED: PANTOprazole 40 MG TAB PO SCH (09:00)
[2023-01-28] MEDS ORDERED: SIMVASTATIN 20 MG TAB PO SCH (09:00)
[2023-01-28] MEDS ORDERED: GABAPENTIN 400 MG CAP PO SCH (09:00)
[2023-01-28] MEDS ORDERED: lisinopril 2.5 MG TAB PO SCH (09:00)
[2023-01-28] MEDS ORDERED: ROFLUMILAST 500 MCG TAB PO SCH (09:00)
[2023-01-28] MEDS ORDERED: SODIUM CHLORIDE 0.9% 1,000 ML IV SCH (10:15)
--- NOTE | 2023-01-28 10:56 | Discharge Summary ---
Date of Service January 28, 2023 Admission HPI Per Admitting Provider Jessica Ontiveros is an 82yo female with history of lung cancer s/p XRT, chemotherapy and WBRT to the brain presenting with syncope and weakness. Patient had a PET scan performed today. She got home and went to the bathroom. She reports she leaned forward and was trying to pick something up from the floor when she got dizzy and collapsed. She was unable to get up due to weakness. She does think that she lost consciousness. Patient's friend was there and helped her off the floor and called 911. Denies chest pain, palpitations, seizure activity. She denies nauseas or vomiting. Was having some abdominal pain and some diarrhea as well as nausea which is improving. No additional complaints In the ER she is afebrile, HD stable, NAD Admission Exam Per Admitting Provider General: patient resting comfortably, NAD, non-toxic in appearance, AA&O x 4 Skin: warm, dry, intact, no rashes or lesions HEENT: NC/AT, PERRL, EOMI, anicteric sclera, conjunctiva without injection, external ear normal to inspection and nontender, nares patent, moist mucus membranes, dentition intact, no oropharyngeal lesions, neck supple, trachea midline, no LAD, no thyromegaly, no JVD Heart: +S1/S2, regular, no m/r/g Lungs: equal air entry bilaterally, no rales/rhonchi/wheezes Abd: +BS, soft, NT/ND, no masses/organomegaly/ascites Ext: warm, 2+ pulses in UE/LE bilaterally, no clubbing/cyanosis or edema Neuro: nonfocal, patient AA&O x 4, speech intact, no facial droop, moving all extremities on command with equal strength 5/5 Principal Diagnosis syncope due to orthostatic hypotension Discharge Exam general: Awake, conversant Heart: S1, S2/regular rate and rhythm, no murmur rubs or gallops Lungs: Clear to auscultation bilaterally. Normal effort Abdomen: Soft/nontender/nondistended. No hepatosplenomegaly Extremities: No clubbing/cyanosis. No edema Behavior: Appropriate, cooperative Discharge Data Allergies Allergy/AdvReac Type Severity Reaction Status Date / Time No Known Allergies Allergy Verified 01/27/23 20:29 Consultations 01/27/23 22:01 ED Decision to Admit Stat Ordered Studies 01/27/23 19:23 CT abd pelvis IV con only Stat CT cervical spine wo con Stat CT head/brain wo con Stat Hospital Course (1) Syncope: 82yo female with history of metastatic lung cancer presenting from home after a syncopal event. Patient reports that she did not eat anything today because she had her PET scan. She was rushing around to get to her study. Here she is afebrile, HD stable. EKG is not concerning patient received IV fluids but despite that she was orthostatic this morning. I wanted to give her some more fluids but she wanted to leave AGAINST MEDICAL ADVICE. She is in complete sound state of mind and is aware of the consequences and risks. She is able to reason through her decision. She has been allowed to leave AGAINST MEDICAL ADVICE. (2) Small cell lung cancer: Chronic. Patient had a PET scan performed today - is to followup on results to determine next step in therapy -Continue home Dilaudid -Continue Neurontin -Continue Cymbalta (3) Hypertension: Chronic. Blood pressure well controlled But positive orthostatic drop. -Continue Lisinopril (4) Hypercholesteremia: Chronic. Stable -Continue Simvastatin 20mg po daily (5) COPD (chronic obstructive pulmonary disease): Chronic. Stable -Continue home O2 -Continue Daliresp -Continue nebs Plan Allowed to leave AGAINST MEDICAL ADVICE Total Time Total Time Spent Total Time Spent (In Minutes): 35 Discharge Plan Discharge Items Patient Disposition: Against Medical Advice Reason For Visit: SYNCOPE Activity: Resume your previous activity Non-emergency contact: Primary Care Provider Follow-up/Referrals: Chuck Martinez M.D. [Primary Care Provider] - Pending Studies at Discharge: No Stand-Alone Forms: My [facility] [employer], Smoking Cessation Medications and DC Order Prescriptions: Continued amitriptyline 10 mg tablet 10 mg PO HS duloxetine 20 mg capsule,delayed release(DR/EC) 20 mg PO QPM fluticasone propionate 50 mcg/actuation spray,suspension 2 spray intranasal DAILY PRN (Reason: Congestion) Rx Instructions: administer into each nostril gabapentin 400 mg capsule 400 mg PO BID hydromorphone 2 mg tablet 1 mg PO Q4H PRN (Reason: Pain) Patient Comments: has not taken these since she was in the hospital lisinopril 2.5 mg tablet 2.5 mg PO QAM Patient Comments: has not been taking olanzapine 5 mg tablet 5 mg PO QPM roflumilast 500 mcg tablet 500 mcg PO QAM simvastatin 20 mg tablet 20 mg PO QAM multivitamin Tablet 1 tab PO DAILY omeprazole 40 mg capsule,delayed release(DR/EC) 40 mg PO HS insulin aspart U-100 [Novolog U-100 Insulin aspart] 100 unit/mL solution 1 sliding scale dose subcut .Before each meal TID Patient Comments: 2:50>150 before each meal and before bed Rx Instructions: 2:50>150 BSG SLIDING SCALE. polyethylene glycol 3350 [Miralax] 17 gram/dose powder 17 g PO BID PRN (Reason: Constipation) sennosides-docusate sodium [Senna with Docusate Sodium] 8.6-50 mg tablet 2 tab-cap PO BID PRN (Reason: Constipation) ondansetron HCl 8 mg tablet 8 mg PO Q8H PRN (Reason: Nausea) ipratropium-albuterol 0.5 mg-3 mg(2.5 mg base)/3 mL solution for nebulization 3 ml INHALATION Q6H PRN (Reason: Wheezing) acetaminophen [Tylenol Extra Strength] 500 mg Tablet 500 mg PO Q6H PRN (Reason: Pain) glimepiride 2 mg tablet 2 mg PO BID lorazepam 0.5 mg tablet 0.5 mg PO Q6H PRN (Reason: Anxiety) desloratadine 5 mg tablet 5 mg PO DAILY PRN (Reason: Congestion) budesonide-formoterol [Symbicort] 160-4.5 mcg/actuation HFA aerosol inhaler 2 inh INHALATION BID Jardiance 25 mg tablet 25 mg PO QAM albuterol sulfate 90 mcg/actuation HFA aerosol inhaler 2 puff INHALATION Q4H PRN (Reason: Shortness Of Breath) Admission Data Admit Date/Time: 01/27/23 22:40 Attending Provider: Hollis Camejo Admit Provider: Yoko Cleaning Primary Care Provider: Chuck Martinez Other Providers: Yoko Cleaning Coding Level of Care Code 70194 INP/OBS DISCH >30 MIN Diagnoses Syncope R55 Small cell lung cancer C34.90 Hypertension I10 Hypercholesteremia E78.00 COPD (chronic obstructive pulmonary disease) J44.9
--- NOTE | 2023-01-28 18:52 | Electrocardiogram Report ---
Test Reason : Blood Pressure : / mmHG Vent. Rate : 091 BPM Atrial Rate : 091 BPM P-R Int : 188 ms QRS Dur : 068 ms QT Int : 330 ms P-R-T Axes : 072 075 075 degrees QTc Int : 405 ms Normal sinus rhythm Normal ECG When compared with ECG of 01-OCT-2022 23:38, No significant change was found Confirmed by Herrera Yeh ([id number]) on 01/28/2023 6:52:07 PM Referred By: REFERRED SELF Confirmed By:Levon Yeh
[2023-01-28] MEDS ORDERED: DULoxetine HCL 20 MG CAP PO SCH (21:00)
[2023-01-28] MEDS ORDERED: OLANZapine 5 MG TABLET PO SCH (21:00)
[2023-01-28] MEDS ORDERED: AMITRIPTYLINE HCL 10 MG TAB PO SCH (21:00)
== END 2023-01-28 11:04 | disposition left against medical advice (07) | DRG 312 ==
LOC: ED 18:41 → EDINP 22:40 → SUATTDRO 22:40 → INTOOBSV 22:40 → EDINP 01-28 11:04